=== PATIENT | male | born 1990 ===

== ENCOUNTER 2020-06-18 14:18 | Outpatient (REF) | payer OTHER, SELFPAY | END 2020-06-18 14:19 | disposition home or self-care (01) | LOC: HO.LAB 14:18 | PROVIDERS: Visit Provider Internal Medicine | DX: Z20.822 Contact with and (suspected) exposure to COVID-19 (principal) | CPT/HCPCS: 36415; C9803; U0003 ==

== ENCOUNTER 2021-02-04 14:14 | Emergency (ER) | payer OTHER, SELFPAY ==
[2021-02-04 14:28] VITALS: BP 117/66; PULSE 85; RESP 18; TEMP 36.8; O2SAT 100; BMI 34.4
--- NOTE | 2021-02-04 17:34 | ED.GENADULT ---
HPI - General Adult General Chief complaint: General Medical Stated complaint: difficulty swallowing Time Seen by Provider: 02/04/21 17:34 Source: patient Mode of arrival: ambulatory Limitations: no limitations History of Present Illness HPI narrative: 30 years old male is send to ED from his PCP. Patient reports that Monday he ate sausage and felt like it was stuck in his throat. Patient reports that he has enlarged tonsils since he was a child. The next day he states that he had no trouble swallowing oatmeal for breakfast. Patient reports that that afternoon he ate chicken that was fried in the fryer that was very dry and and it felt like he had hard time swallowing and getting down to his stomach. Patient reports that he drinks some water and felt better. This morning he had some eggs and had some feeling of epigastric discomfort and burning. Pain happened after he ate. He did not had difficulty of swallowing he points that his pain is mainly in mid upper abdomen just below the sternum. Related Data Previous Rx's Medication Instructions Recorded famotidine 20 mg tablet 20 mg PO BEDTIME #20 tab 02/04/21 pantoprazole 40 mg tablet,delayed 40 mg PO DAILY #20 tab 02/04/21 release Allergies Allergy/AdvReac Type Severity Reaction Status Date / Time No Known Allergies Allergy Verified 02/04/21 14:28 Review of Systems Review of Systems: Constitutional : No Weight loss, No Fever, No Chills, No Night Sweats, No Fatigue, No Malaise ENT/Mouth : No Hearing loss, No Ear Pain, No Nasal Congestion, No Sinus Pain, No Hoarseness, No sore throat, No Rhinorrhea, No Swallowing Difficulty Eyes: No Eye Pain, No Swelling, No Redness, No Foreign Body, No Discharge, No Vision Changes Cardiovascular : No Chest Pain, No SOB, No Dyspnea on Exertion, No Orthopnea, No Edema, No Palpitations Respiratory : No Cough, No Sputum, No Wheezing, No Smoke Exposure, No Dyspnea Gastrointestinal : No Nausea, No Vomiting, No Diarrhea, No Constipation, No abdominal Pain, No Hematochezia, No Melena, difficulty swallowing Genitourinary : no irregular bleeding, No Dysuria, No Urinary Frequency, No Hematuria, No Urinary Incontinence, No Urgency, No Flank Pain, No Urinary Flow Changes, No Hesitancy Musculoskeletal : No joint pain, No Myalgias, No Joint Swelling Skin : No Skin Lesions, No rash Neuro : No Weakness, No Numbness, No Paresthesias, No Loss of Consciousness, No Dizziness, No Headache Psych : No Anxiety/Panic, No Depression, No SI/HI/AH/VH, No Social Issues, Heme/Lymph: No Bruising, No Bleeding,No Lymphadenopathy Endocrine : No Polyuria, No Polydipsia, No Temperature Intolerance Yes all other systems are reviewed and are negative PMFSH Past Medical History Medical History (Updated 02/05/21 @ 00:02 by Background Ciara) Essential hypertension Mood disorder CHIDI (obstructive sleep apnea) Seborrheic dermatitis Physical Exam Vital Signs: Vital Signs: Last Vital Signs Temp 98.2 F 02/04/21 14:28 Pulse 85 02/04/21 14:28 Resp 18 02/04/21 14:28 BP 117/66 02/04/21 14:28 Pulse Ox 100 02/04/21 14:28 Body Mass Index 34.4 Const: General: healthy appearing, no acute distress and well developed Nutritional Appearance: well nourished Orientation/consciousness: patient oriented x3 HENMT: Head: Yes normal to inspection, Yes normocephalic and Yes atraumatic Ears: hearing grossly normal bilaterally General nose exam: Normal external nose present Face and sinus: Yes normal facial exam Mouth: Normal oral and palatal mucosa present and other (Enlarged tonsils) Eyes: General: appearance normal, both eyes and all related structures Neck: Neck: Yes normal visual inspection, Yes full ROM and Yes trachea midline Thyroid: Thyroid normal Resp: Auscultation: clear to auscultation bilaterally Cardio: Rate: regular rate Rhythm: regular rhythm GI: Inspection: Yes normal to inspection and No distended Palpation (GI): No hepatosplenomegaly present Auscultation: normal bowel sounds Skin: General skin exam: elasticity normal, turgor normal and dry skin Neuro: General: patient oriented x3 Course Course Course Narrative: 30-year-old male here today after complaining of dysphagia after eating dry chicken. Patient reports that he has no trouble swallowing fluids. Patient was able to eat old male with no difficulties. Reports to have trouble eating scrambled eggs. Patient denies nausea vomiting no SOB. No respiratory distress. Will give him famotidine and observe Reevaluation(s) Reevaluation #1: Patient able to tolerate fluids. No shortness of breath or respiratory distress. Patient denies dyspepsia or dysphagia. I will send him home with famotidine and pantoprazole. He can follow up with his primary care provider and with Gastroenterology for possible barium swallow. He is agreeable to plan of care verbalizes understanding of instructions. He was given the opportunity to ask questions all questions answered. Discharge Plan Discharge Clinical Impression: Postprandial epigastric pain Patient Disposition: Home, Self-Care Instructions: Epigastric Pain (ED) Additional Instructions: You were seen here today for difficulty swallowing, epigastric pain. You were given medication to help you with the burning sensation. He will be sent home with 2 different medications. Take 1 in the morning half an hour before breakfast and the other 1 before going to bed. Make sure you are eating soft and bland food for the next few days. Please follow-up with your primary care provider in 2-3 days. I will also give you a number to Gastroenterology please follow up with them next week. You may return to emergency department if your symptoms will get worse or if you will experience any additional concerning symptoms. Prescriptions: New pantoprazole 40 mg tablet,delayed release (DR/EC) 40 mg PO DAILY Qty: 20 RF: 0 famotidine 20 mg tablet 20 mg PO BEDTIME Qty: 20 RF: 0 Referrals: Deena Carreon MD [Physician] - 2 days (Might need a barium swallow) Sushila Young MD [Primary Care Provider] - 2 days Stand Alone Forms: Work/School Release Interventions: ED Discharge Assessment Last Done: 02/04/21 18:51 Discharge Date/Time: 02/04/21 18:52
[2021-02-04] MEDS: Famotidine 20 MG TABLET PO (18:04)
== END 2021-02-04 18:52 | disposition home or self-care (01) ==
PROVIDERS: Emergency Provider Internal Medicine; PCP Internal Medicine
DX: R10.13 Epigastric pain (principal); R13.10 Dysphagia, unspecified; Z79.899 Other long term (current) drug therapy
CPT/HCPCS: 99283

== ENCOUNTER → 2021-02-16 09:04 | Outpatient (BNVA) | payer OTHER, SELFPAY | PROVIDERS: PCP Internal Medicine; Referring Provider Internal Medicine; Visit Provider Nurse Practitioner Family | DX: R13.10 Dysphagia, unspecified (principal); I10 Essential (primary) hypertension | CPT/HCPCS: 99202 ==

== ENCOUNTER 2021-03-25 08:54 | Day surgery (SDC) | payer OTHER, SELFPAY ==
--- NOTE | 2021-03-24 10:10 | P.CONAN_ITS ---
Documented by User: Lacey Goldberg NP 03/24/21 10:10 HPI - Anesthesia Eval Consult details Narrative: 30yo M for Upper Endoscopy and Colonoscopy [facility] Past Medical History Medical History (Updated 02/05/21 @ 00:02 by Background Ciara) Essential hypertension Mood disorder CHIDI (obstructive sleep apnea) Seborrheic dermatitis Family History Family History Father Diabetes Mother HTN (hypertension) Acute arthritis Surgical History Surgical History Hx of appendectomy Social History Social History Household Members: Significant Other Alcohol intake: current Alcohol intake frequency: holidays/special occasions only Patient Tobacco Use Status: Never used Tobacco Use of substances other than those prescribed or required for medical reasons: Yes Substance Use Type: Marijuana Are you DNR?: No Advance Directives: No Advance Directives Information Provided: Yes Meds Allergies Allergy/AdvReac Type Severity Reaction Status Date / Time No Known Allergies Allergy Verified 02/16/21 09:11 Exam Exam Date and Time: March 24, 2021 1010 Assessment and Plan Assessment Anesthesia Assessment: Chart Reviewed Documented by User: Faby Crook MD 03/25/21 10:26 [facility] Past Medical History Medical History (Updated 02/05/21 @ 00:02 by Background Ciara) Essential hypertension Mood disorder CHIDI (obstructive sleep apnea) Seborrheic dermatitis Functional capacity: independent ambulation Family History Family History Father Diabetes Mother HTN (hypertension) Acute arthritis Family history of problems with anesthesia: No Surgical History Surgical History Hx of appendectomy History of Problems with Anesthesia: No Social History Social History Household Members: Significant Other Alcohol intake: current Alcohol intake frequency: holidays/special occasions only Patient Tobacco Use Status: Never used Tobacco Use of substances other than those prescribed or required for medical reasons: Yes Substance Use Type: Marijuana Are you DNR?: No Advance Directives: No Advance Directives Information Provided: Yes Meds Allergies Allergy/AdvReac Type Severity Reaction Status Date / Time No Known Allergies Allergy Verified 02/16/21 09:11 Exam Airway Mallampati Class: III TM Dist: >3cm Neck ROM: Full Heart: RrR Lungs: CTA Assessment and Plan Final Anesthetic Review Family History of Problems with Anesthesia: No History of Problems with Anesthesia: No
--- NOTE | 2021-03-25 08:58 | MHC.SHP ---
Pre-Procedural Eval Section A Date of Service: 03/25/21 Section B Chief Complaint: burn of esophagus Relevant Family History (Specify if Yes): No Relevant Social History: Other (specify) (thc) Present Medications: see Short Stay Collaborative assessment Medical History: Significant History (Essential hypertension Mood disorder CHIDI (obstructive sleep apnea) Seborrheic dermatitis) History of Previous Operations: Relevant previous surgery/procedure and date(s) (appendectomy) Allergies: Allergies Allergy/AdvReac Type Severity Reaction Status Date / Time No Known Allergies Allergy Verified 02/16/21 09:11 Review of Systems Sugical H&P ROS: Negative: Constitution, Cardiovascular, Respiratory, Neurological, Psychiatric, Hem-Onc, Allergic/Immunologic, Gastrointestinal, Genitourinary, Musculoskeletal, Integumentary, Endocrine and Eyes/Ears/Nose/Throat Exam Surgical H&P Exam: Normal: HEENT, Normal: Heart, Normal: Lungs, Normal: Extremities, Normal: Abdomen, Normal: Skin and Normal: Neurological Plan Diagnosis/Plan: Unchanged I have reviewed the history and physical and performed a pertinent physical examination on my patient. No changes have occurred unless specified.
[2021-03-25 09:19] VITALS: BP 123/73; PULSE 76; RESP 16; TEMP 36.6; O2SAT 99; BMI 35.6
[2021-03-25] MEDS: Lactated Ringers 1,000 ML 100 ML IVCONT (09:28)
--- NOTE | 2021-03-25 10:09 | PM.OP ---
Brief Operative Note Date of Service: 03/25/21 Pre-op diagnosis: dysphagia Post-op diagnosis: same Procedure: see op note Surgeon: Deena Carreon MD Anesthesia: MAC Was an Finishing Range Feeder used for this Procedure?: No Estimated blood loss (mL): 0 Condition: stable Disposition: PACU
--- NOTE | 2021-03-25 10:09 | W.PM.OPN ---
Operative Note Operative Note Date of Service: 03/25/21 Narrative: Procedure Description: EGD FLEXIBLE TRANSORAL UPPER GASTROINTESTINAL ENDOSCOPY UPPER ENDOSCOPY Consent: Indications for the procedure and potential complications of bleeding, perforation, reaction to medications and missed diagnosis were discussed with the patient and informed consent was obtained. Instrument: Olympus GIF H 190 J mid size upper endoscope Monitoring: Vital signs and clinical assessment, continuous EKG monitoring, Pulse oximetry, Carbon Dioxide monitoring and blood pressure monitoring were done throughout the procedure. Procedure: The patient was placed in the left lateral decubitis position and pre-procedure medications were administered and a bite block was placed. The endoscope was inserted into the mouth and advanced under direct vision to the third part of duodenum. A careful inspection was made as the upper endoscope was withdrawn including a retroflexed examination of the proximal stomach; Findings and interventions are described below. Findings: Larynx:normal Esophagus: GE junction at 41 cm, diaphragm hiatus at 41 cm, LA grade A esophagitis noted, bx taken from GEj, distal and proximal eesophagus in separate jars. Balloon dilation done at LES and UES to 20 mm with no tears seen. Stomach: Patchy gastric erythema. Biopsies were obtained. Grade 3 flap valve on retroflexed examination of the cardia. The LES appeared lax. Duodenum: Normal bulb and descending duodenum, Intervention: Biopsies as noted above, balloon dilation Impression/Findings: esophagitis gastritis lax LES PLAN: reflux precautions cont with PPi as it is helping and his sx are much improved bx taken to r/o EoE, might need to increase PPI depending on results.
[2021-03-25 10:18] VITALS: BP 117/60; PULSE 80; RESP 16; TEMP 36.5; O2SAT 98
[2021-03-25 10:33] VITALS: BP 127/68; PULSE 71; RESP 18; TEMP 36.5; O2SAT 99
--- NOTE | 2021-03-25 10:45 | HO.POSTANES ---
Post Anesthesia Evaluation Post Anesthesia Evaluation Vital Signs: Vital Signs Temp Pulse Resp BP Pulse Ox 03/25/21 10:33 97.7 F 71 18 127/68 99 03/25/21 10:18 97.7 F 80 16 117/60 98 03/25/21 09:19 97.8 F 76 16 123/73 99 Anesthesia: Monitored Mental Status: Awake Nausea/Vomiting: None Hydration: Adequate Anesthesia-Related Issues: No Anes. Related Issues
== END 2021-03-25 10:46 | disposition home or self-care (01) ==
PROVIDERS: PCP Internal Medicine; Visit Provider Internal Medicine Gastroenterology
PROC: 0DJ08ZZ Inspection of Upper Intestinal Tract, Via Natural or Artificial Opening Endoscopic (ICD-10-PCS; CPT 43235; principal; 2021-03-25 10:20)
DX: R13.10 Dysphagia, unspecified (principal); K22.4 Dyskinesia of esophagus; K20.80 Other esophagitis without bleeding; K29.50 Unspecified chronic gastritis without bleeding; K44.9 Diaphragmatic hernia without obstruction or gangrene; K21.9 Gastro-esophageal reflux disease without esophagitis; I10 Essential (primary) hypertension; G47.33 Obstructive sleep apnea (adult) (pediatric); F39 Unspecified mood [affective] disorder; Z79.899 Other long term (current) drug therapy
CPT/HCPCS: 43249; 43239; 88305; 88342; C1726

== ENCOUNTER → 2021-04-06 11:31 | Outpatient (BNVA) | payer OTHER, SELFPAY | PROVIDERS: PCP Internal Medicine; Referring Provider Internal Medicine; Visit Provider Nurse Practitioner Family | DX: R10.13 Epigastric pain (principal); K21.9 Gastro-esophageal reflux disease without esophagitis | CPT/HCPCS: 99212 ==

== ENCOUNTER → 2022-01-10 10:02 | Outpatient (BNVA) | payer SELFPAY | PROVIDERS: PCP Internal Medicine; Visit Provider Physician Assistant Medical | DX: Z02.79 Encounter for issue of other medical certificate (principal) ==

== ENCOUNTER 2022-02-15 08:43 | Emergency (ER) | payer OTHER, SELFPAY ==
[2022-02-15 08:57] VITALS: BP 151/100; PULSE 106; RESP 18; TEMP 36.6; O2SAT 100; BMI 35.7
[2022-02-15 10:02] LABS: Appearance Urine Clear; Color Urine Dark Yellow; Glucose Urine UA Negative (Negative); Leukocyte Esterase Urine Negative (Negative); Nitrite Urine Negative (Negative); PH 5.5 (5.0-9.0); Specific Gravity - Urine >= 1.030 (1.005-1.025); Urine Blood Negative (Negative); Urine Ketones 40 mg/dL (Negative); Urine Protein Negative (Neg-Trace)
[2022-02-15 11:27] VITALS: BP 145/72; PULSE 92; RESP 17; TEMP 37.1; O2SAT 99
--- NOTE | 2022-02-15 11:32 | ED.MALEGU ---
HPI - Male Genitourinary General Chief complaint: Urogenital-Male Stated complaint: lower back pain/pain while urinating Time Seen by Provider: 02/15/22 09:09 Source: patient Mode of arrival: ambulatory Limitations: no limitations History of Present Illness Complaint: dysuria and possible STD exposure Onset (ago): week(s) (1) Duration: intermittent Location: penis Severity: mild Quality: burning Relieving factors: none Exacerbating factors: urination Context: new sexual partner Associated symptoms: Reports other (mild low back pain) Related Data Previous Rx's Medication Instructions Recorded famotidine 20 mg tablet 20 mg PO BEDTIME #30 tabs 04/06/21 pantoprazole 40 mg tablet,delayed 40 mg PO DAILY #30 tabs 04/06/21 release doxycycline hyclate 100 mg tablet 100 mg PO BID 7 days #14 tabs 02/15/22 Allergies Allergy/AdvReac Type Severity Reaction Status Date / Time No Known Allergies Allergy Verified 04/06/21 11:58 Review of Systems Review of Systems: Constitutional : No Fever, No Chills ENT/Mouth : No sore throat, No Rhinorrhea Eyes: No Eye Pain, No Swelling, No Redness Cardiovascular : No Chest Pain, No SOB Respiratory : No Cough, No Sputum, No Wheezing Gastrointestinal : No Nausea, No Vomiting, No Diarrhea No abdominal Pain Genitourinary : pos Dysuria, No Urinary Frequency, No Hematuria, Musculoskeletal : No joint pain, No Myalgias, No Joint Swelling Skin : No Skin Lesions, No rash Neuro : No Weakness, No Numbness, No Dizziness, No Headache PMFSH Past Medical History Medical History Essential hypertension Mood disorder CHIDI (obstructive sleep apnea) Seborrheic dermatitis Surgical History (Updated 04/06/21 @ 12:02 by Cathryn Clark CMA) History of endoscopy Hx of appendectomy Family History Family History Father Diabetes Mother HTN (hypertension) Acute arthritis Social History Social History Household Members: Significant Other Alcohol intake: current Alcohol intake frequency: holidays/special occasions only Patient Tobacco Use Status: Never used Tobacco Substance Use Type: Marijuana Physical Exam Vital Signs: Vital Signs: Last Vital Signs Temp 98.7 F 02/15/22 11:27 Pulse 92 02/15/22 11:27 Resp 17 02/15/22 11:27 BP 145/72 H 02/15/22 11:27 Pulse Ox 99 02/15/22 11:27 O2 Del Method 02/15/22 11:27 BMI result Body Mass Index 35.7 Appearance: Alert. Oriented X3. No acute distress. Eyes: Pupils equal, round and reactive to light. ENT: Pharynx normal. Neck: Normal inspection. Neck supple. CVS: Pulses normal. Respiratory: No respiratory distress. Abdomen: Soft and nontender. : normal no mass or rash seen, no discharge Skin: Skin warm and dry. Normal skin color. Extremities: No lower extremity edema. Neuro: Oriented X 3. No motor deficit. No sensory deficit. MDM - Male Genitourinary MDM Narrative Medical decision making narrative: 31 yo female otherwise healthy here with burning pain when he pees after sexual encounter 2 weeks ago - no fevers, no rash seen no mass, abdomen is benign. not toxic appearing, will obtain GC start on ceftriaxone and doxy, discussed safe safe, refer to PP for HIV testing Lab Data Labs: Lab Results 02/15/22 Range/Units 09:50 Urine Color Dark Yellow Urine Appearance Clear Urine pH 5.5 (5.0-9.0) Ur Specific [place] >= 1.030 H (1.005-1.025) Urine Protein Negative (Neg-Trace) mg/dL Urine Glucose (UA) Negative (Negative) mg/dL Urine Ketones 40 (Negative) mg/dL Urine Blood Negative (Negative) Urine Nitrite Negative (Negative) Ur Leukocyte Esterase Negative (Negative) Discharge Plan Discharge Clinical Impression: Dysuria, Exposure to sexually transmitted disease (STD) Patient Disposition: Home, Self-Care Instructions: Sexually Transmitted Diseases (ED), Dysuria (ED) Additional Instructions: usted fue tratado por gonorrea. braxton antibi?chastity es para la clamidia; debe terminar todo el frasco de antibi?ticos. braxton corona necesita ser examinada y tratada. sin sexo justina 7 d?as. por favor vaya a planificaci?n familiar o tapestry para la prueba del VIH. lo llamaremos con resultados positivos de braxton prueba en 2 a 3 d?as [facility] [id number] [facility] [phone] Prescriptions: New doxycycline hyclate 100 mg tablet 100 mg PO BID 7 Days Qty: 14 0RF No Action famotidine 20 mg tablet 20 mg PO BEDTIME Qty: 30 2RF pantoprazole 40 mg tablet,delayed release (DR/EC) 40 mg PO DAILY Qty: 30 2RF Rx Instructions: Take half an hour before breakfast Stand Alone Forms: Work/School Release Print Language: Telugu
[2022-02-15] MEDS: cefTRIAXone sodium 500 MG, Lidocaine HCl 1 % MPF 1 ML IM (11:49)
== END 2022-02-15 11:53 | disposition home or self-care (01) ==
PROVIDERS: Emergency Provider Emergency Medicine
DX: R30.0 Dysuria (principal); Z20.2 Contact with and (suspected) exposure to infections with a predominantly sexual mode of transmission; I10 Essential (primary) hypertension; F12.90 Cannabis use, unspecified, uncomplicated; Z79.899 Other long term (current) drug therapy
CPT/HCPCS: 81003; 87491; 87591; 96372; 99283; 99284; J0696

== ENCOUNTER → 2023-03-23 08:57 | Outpatient (BNVA) | payer OTHER, SELFPAY | PROVIDERS: Visit Provider Physician Assistant Surgical ==

== ENCOUNTER → 2023-03-31 08:06 | Outpatient (BNVA) | payer OTHER, SELFPAY | PROVIDERS: Visit Provider Surgery ==

== ENCOUNTER 2023-04-05 08:19 | Outpatient (AMB) | payer OTHER, SELFPAY ==
--- NOTE | 2023-04-05 12:32 | A.OFFVIS_ITS ---
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 *R/S'D* HPI Details Start time:12.25pm, End time: 1.14pm ?I spent 44 minutes speaking with the patient on the phone plus an additional 5 minutes reviewing and updating records for a total of 49 minutes HPI Comments History of Present Illness Details Previous weight loss efforts: self diets and exercise Wakes up: 7am, Sleeps: 11pm Breakfast: skips Lunch: 12pm (2 eggs and cheese) Dinner: 5.30pm (tuna, chicken) Snacks: one Premier shake at 1pm, 11pm (Oreos) Exercise: Gym daily Fluids: Coffee 5-6/day (black), tea: Green tea: 3 cups per day (plain), soda: none, juice: 1/week, ETOH: 2/week (Whiskey 18oz each time) [facility] Medical History (Updated 04/05/23 @ 12:34 by Perico Brown MD) Morbid obesity Mood disorder Seborrheic dermatitis Essential hypertension CHIDI (obstructive sleep apnea) Surgical History (Updated 04/06/21 @ 12:02 by Cathryn Clark [facility]) History of endoscopy Hx of appendectomy Family History (Updated 03/23/23 @ 09:18 by Alexandria Forbes CMA) Father Diabetes Mother HTN (hypertension) Acute arthritis Sleep apnea Son Autism Daughter No problems noted. Social History Household Members: Significant Other Alcohol intake: current Alcohol intake frequency: holidays/special occasions only Patient Tobacco Use Status: Never used Tobacco Substance Use Type: Marijuana Assessment & Plan Assessment & Plan (1) Morbid obesity: Code(s): E66.01 - Morbid (severe) obesity due to excess calories Plan: 1.? Plan for lap sleeve gastrectomy. If diaphragmatic or ventral hernias are present at time of surgery, these will be repaired laparoscopically as well. Risks and complications were discussed in detail including possible conversion t o an open procedure, anastomotic leak, bleeding requiring transfusion, small bowel obstruction, , DVT and pulmonary embolism, cardiac, or pulmonary complications, as buttermaker continuous churn complications such as anastomotic ulcer, insufficient weight loss and vitamin deficiencies. I emphasized the importance of close follow-up, adherence to instructions and good communication. 2. Nutritional Counseling: A) PLAN WITH LIQUID PREMIER SHAKES: Start with ONE PREMIER PREMADE protein shake at 8am-10am, two protein bars (Zone Perfect protein bars, buy at [employer], ?[employer], [employer], or [employer]) at 11am-1pm and 2m-4pm, dinner at 5pm (10 forks of protein and 10 forks of salad/vegetables), another Zone Perfect protein bar at 7pm-9pm and another HALF protein bar at 10pm-11pm. So you do 1 protein shake, 3.5 protein bars and one meal per day. B) PLAN WITH POWDERED PREMIER SHAKES: Start with 2 Premier powdered protein shakes (ONE scoop EACH in 8oz low fat unsweetened almond milk each) at 8am-10am and 11am-1pm, 1 Zone Perfect protein bar at 2pm-4pm, dinner at 5pm (10 forks of protein and 10 forks of salad/vegetables) another Zone Perfect protein bar at 7pm-9pm and another HALF protein bar at 10pm-11pm. So you do 2 protein shakes, 2.5 protein bars and one meal per day. Meal to include lean meat (beef, fish, pork, turkey, chicken), or luxembourgish yogurt, or egg whites, or beans with a salad with olive oil and fruits (berries, pears, apples, kiwi). Avoid salt, breads, potatoes, rice, pasta, desserts. 3. Each shake would be drunk slowly, like coffee in a period of 2 hours. May add your coffee into your shakes, if flavors match. 4. Cut each bar in 4 pieces and eat each piece in 30min ?to make each bar last 2 hours. 5. I emphasized the importance of measuring accurately the food portion and measure it when serving the food in plate 6. The meal portions include 10 full-size forks of meat and 10 full-size forks of salad. You always eat the meat portion but you can replace up to 5 forks for salad/vegetables with rice, potatoes or pasta, or a fruit ?if you like. The less you do it the better weight loss will be. 7. One full-size fork is what it can be scooped on the fork without falling aside and not what can be bit with the fork. Use regular forks like those you find in a typical restaurant. 8.? Please send me weight measurements as soon as possible and then once a week. Always include your diet and exercise plan. 9. Start treadmill with an incline of 2.0 and speed of 3.0. Increase incline by 1 every 3 min to a max incline of 8.0, stay 3min at 8.0 and then return to 2.0 and repeat same steps until calorie goal is met. Goal is to burn 2000 calories per week on exercise, which means either 300 calories daily, or 400 calories 5 days per week, or 500 calories 4 days per week, or 650 calories 3 days per week. 10. Alternatively purchase a stationary bike, elliptical or treadmill at home that can track calories. Let me know if you do so I can give you an exercise plan. 11. Goal is to lose at least 1.5-2lbs per week 12. Goal to lose 10% of your weight before surgery, which is about 29lbs. Ultimate weight goal: 262lbs before surgery 13. Please follow the diet plan exactly without any change. If you don't like something about the plan or you feel hungry you need to communicate with me so I can help you revise the plan. You should not change the plan yourself. (2) CHIDI (obstructive sleep apnea): Code(s): G47.33 - Obstructive sleep apnea (adult) (pediatric) (3) Essential hypertension: Code(s): I10 - Essential (primary) hypertension Orders: Orders Comprehensive Met. Panel Today E66.01 - Morbid (severe) obesity due to excess calories, G47.33 - Obstructive sleep apnea (adult) (pediatric), I10 - Essential (primary) hypertension Vitamin B1 Today E66.01 - Morbid (severe) obesity due to excess calories, G47.33 - Obstructive sleep apnea (adult) (pediatric), I10 - Essential (primary) hypertension Vitamin A Today E66.01 - Morbid (severe) obesity due to excess calories, G47.33 - Obstructive sleep apnea (adult) (pediatric), I10 - Essential (primary) hypertension PTHI Today E66.01 - Morbid (severe) obesity due to excess calories, G47.33 - Obstructive sleep apnea (adult) (pediatric), I10 - Essential (primary) hypertension TSH reflex Free T4 Today E66.01 - Morbid (severe) obesity due to excess calories, G47.33 - Obstructive sleep apnea (adult) (pediatric), I10 - Essential (primary) hypertension Vitamin D 25-OH Total Today E66.01 - Morbid (severe) obesity due to excess calories, G47.33 - Obstructive sleep apnea (adult) (pediatric), I10 - Essential (primary) hypertension Hemoglobin A1c Today E66.01 - Morbid (severe) obesity due to excess calories, G47.33 - Obstructive sleep apnea (adult) (pediatric), I10 - Essential (primary) hypertension US abdomen comp w elastography Today E66.01 - Morbid (severe) obesity due to excess calories, G47.33 - Obstructive sleep apnea (adult) (pediatric), I10 - Essential (primary) hypertension Insulin Today E66.01 - Morbid (severe) obesity due to excess calories, G47.33 - Obstructive sleep apnea (adult) (pediatric), I10 - Essential (primary) hypertension Lipid Panel Today E66.01 - Morbid (severe) obesity due to excess calories, G47.33 - Obstructive sleep apnea (adult) (pediatric), I10 - Essential (primary) hypertension IRON PROFILE Today E66.01 - Morbid (severe) obesity due to excess calories, G47.33 - Obstructive sleep apnea (adult) (pediatric), I10 - Essential (primary) hypertension Complete Blood Count Auto Diff Today E66.01 - Morbid (severe) obesity due to excess calories, G47.33 - Obstructive sleep apnea (adult) (pediatric), I10 - Essential (primary) hypertension Vitamin B12 and Folate Today E66.01 - Morbid (severe) obesity due to excess calories, G47.33 - Obstructive sleep apnea (adult) (pediatric), I10 - Essential (primary) hypertension Zinc Today E66.01 - Morbid (severe) obesity due to excess calories, G47.33 - Obstructive sleep apnea (adult) (pediatric), I10 - Essential (primary) hypertension C Reactive Protein Today E66.01 - Morbid (severe) obesity due to excess calories, G47.33 - Obstructive sleep apnea (adult) (pediatric), I10 - Essential (primary) hypertension Ferritin Today E66.01 - Morbid (severe) obesity due to excess calories, G47.33 - Obstructive sleep apnea (adult) (pediatric), I10 - Essential (primary) hypertension H Pylori Breath Test Today E66.01 - Morbid (severe) obesity due to excess calories, G47.33 - Obstructive sleep apnea (adult) (pediatric), I10 - Essential (primary) hypertension XR chest 2V Today E66.01 - Morbid (severe) obesity due to excess calories, G47.33 - Obstructive sleep apnea (adult) (pediatric), I10 - Essential (primary) hypertension ECG 12 lead EKG Today E66.01 - Morbid (severe) obesity due to excess calories, G47.33 - Obstructive sleep apnea (adult) (pediatric), I10 - Essential (primary) hypertension FL upper GI w air Today E66.01 - Morbid (severe) obesity due to excess calories, G47.33 - Obstructive sleep apnea (adult) (pediatric), I10 - Essential (primary) hypertension Referrals Behavioral Health Referral E66.01 - Morbid (severe) obesity due to excess calories, G47.33 - Obstructive sleep apnea (adult) (pediatric), I10 - Essential (primary) hypertension Nutrition/Dietitian Referral E66.01 - Morbid (severe) obesity due to excess calories, G47.33 - Obstructive sleep apnea (adult) (pediatric), I10 - Essential (primary) hypertension Telehealth Telehealth Location of provider rendering services: practice address Location of patient: address on file Patient Identification confirmed using: Name, : Yes Telehealth method: voice only Patient verbally consented to treatment: Yes Patient verbally consented to billing insurance company: Yes Patient informed of any privacy concerns related to visit: Yes Minutes spent on Phone/Video with Pt.: 49 Coding Level of Care Code Tele [facility] Pt Level 4 (00304) Diagnoses Morbid obesity E66.01 CHIDI (obstructive sleep apnea) G47.33 Essential hypertension I10 Time Spent (min) 49
[2023-04-05 12:41] VITALS: BMI 44.2
== END 2023-04-05 13:15 | disposition home or self-care (01) ==
LOC: HO.HBS 08:19
PROVIDERS: Visit Provider Surgery
DX: E66.01 Morbid (severe) obesity due to excess calories (principal); G47.33 Obstructive sleep apnea (adult) (pediatric); I10 Essential (primary) hypertension
CPT/HCPCS: 99204

== ENCOUNTER → 2023-04-05 08:19 | Outpatient (BNVA) | payer OTHER, SELFPAY | PROVIDERS: Visit Provider Surgery ==

== ENCOUNTER 2023-04-06 09:04 | Outpatient (REF) | payer OTHER, SELFPAY ==
--- NOTE | ~2023-04-06 | XR_ITS ---
EXAMINATION: XR CHEST CLINICAL INFORMATION: Morbid (severe) obesity due to excess calories COMPARISON: Chest 05/12/2019 TECHNIQUE: 2 views of the chest were obtained. FINDINGS: No significant abnormality is noted involving the heart, lungs, mediastinum, bony thorax or soft tissues. XR/XR chest 2V IMPRESSION: Unremarkable examination.
--- NOTE | 2023-04-06 09:11 | ECG_ITS ---
Test Reason : morbid obesity Blood Pressure : / mmHG Vent. Rate : 081 BPM Atrial Rate : 081 BPM P-R Int : 166 ms QRS Dur : 100 ms QT Int : 372 ms P-R-T Axes : 059 004 027 degrees QTc Int : 432 ms Normal sinus rhythm Normal ECG When compared with ECG of 12-MAY-2019 15:00, No significant change was found Referred By: Perico Brown Electronically Signed By:SHAW OBRIEN MD
[2023-04-06 09:30] LABS: MANUAL DIFF FLAG NO
[2023-04-06 09:42] LABS: Basophils Percent Auto 0.6 % (0-2); Eosinophils Absolute Auto 0.2 X10*3/uL (0.0-0.4); Eosinophils Percent Auto 3.8 % (0-4); Hemoglobin 15.1 g/dl (14.0-18.0); Imm Gran Abs Auto 0.05 X10*3/uL (0.00-0.03); Lymphocytes Absolute Auto 2.4 X10*3/uL (1.2-4.9); Lymphocytes Percent Auto 49.2 % (20-40); Mean Corpuscular HGB Conc 33.6 g/dl (31.0-36.0); Mean Corpuscular Hemoglobin 27.6 pg (27.0-33.0); Mean Corpuscular Volume 82.1 fL (80.0-98.0); Mean Platelet Volume 10.1 fL (9.4-12.4); Monocytes Absolute Auto 0.6 X10*3/uL (0.1-1.2); Monocytes Percent Auto 11.7 % (2-11); Neutrophils Absolute Auto 1.6 x10*3/uL (2.0-8.3); Neutrophils Percent Auto 33.7 % (45-73); Platelet Count 196 X10*3/uL (160-400); Red Blood Count 5.48 X10*6/uL (4.60-5.80); Red Cell Distribution Width 13.3 % (11.0-16.0); White Blood Count 4.8 X10*3/uL (4.8-10.8)
[2023-04-06 09:56] LABS: Estimated Average Glucose 91 mg/dL; Hemoglobin A1c % 4.8 % (<6.0)
[2023-04-06 10:17] LABS: Alanine Aminotransferase 44 U/L (0-40); Albumin Level 4.4 g/dL (3.5-5.0); Alkaline Phosphatase 98 U/L (39-117); Anion Gap 12 (12-20); Aspartate Amino Transferase 31 U/L (5-37); Bilirubin Total 0.6 mg/dL (0.0-1.0); Blood Urea Nitrogen 12 mg/dL (9-16); C Reactive Protein 1.39 mg/dL (< or = 0.50); Calcium 9.3 mg/dL (8.4-10.2); Carbon Dioxide 21 mmol/L (22-29); Chloride 111 mmol/L (96-108); Cholesterol 188 mg/dL (<200); Estimated Glomerular Filt Rate > 60; Glucose Random 95 mg/dL (60-115); HDL Cholesterol 44 mg/dL (>40); Iron 107 mcg/dL (45-160); LDL Cholesterol Calculated 131 mg/dL (<100); Percent Iron Saturation 36 % (15-50); Potassium 3.8 mmol/L (3.3-5.1); Sodium 140 mmol/L (135-145); Total Iron Binding Capacity 295 mcg/dL (228-428); Total Protein 7.9 g/dL (6.5-8.0); Triglycerides 67 mg/dL (<150); Unsaturated Iron Binding 188 ug/dL
[2023-04-06 10:33] LABS: Ferritin 163 ng/mL (20-250); Insulin 5 uU/mL (2-29); TSH reflex Free T4 0.84 uIU/mL (0.32-4.0)
[2023-04-06 10:41] LABS: Folate 13.4 ng/mL (> or = 4.0); Vitamin B12 790 pg/mL (200-900)
[2023-04-07 17:49] LABS: Calcium (PTHI) 9.2 mg/dL (8.6-10.3); PTHI 25 pg/mL (16-77)
[2023-04-09 22:24] LABS: Zinc 93 mcg/dL (60-130)
[2023-04-11 08:44] LABS: Vitamin A 60 mcg/dL (38-98)
[2023-04-11 14:53] LABS: Vitamin B1 10 nmol/L (8-30)
[2023-04-12 15:23] LABS: H Pylori Breath Test Negative (Negative)
== END 2023-04-06 09:05 | disposition home or self-care (01) ==
LOC: HO.XRAY 09:04
PROVIDERS: Visit Provider Surgery
DX: Z11.2 Encounter for screening for other bacterial diseases (principal); E66.01 Morbid (severe) obesity due to excess calories; I10 Essential (primary) hypertension; G47.33 Obstructive sleep apnea (adult) (pediatric)
CPT/HCPCS: 36415; 71046; 80053; 80061; 82306; 82607; 82728; 82746; 83013; 83036; 83525; 83540; 83970; 84425; 84443; 84590; 84630; 85025; 86140; 93005; 99211

== ENCOUNTER 2023-04-21 08:08 | Outpatient (AMB) | payer OTHER, SELFPAY ==
[2023-04-21 09:45] VITALS: BMI 45.8
--- NOTE | 2023-04-21 09:45 | A.OFFVIS_ITS ---
Intake VS Expanded 04/21/23 09:45 Height 5 ft 8 in Weight 301 lb 8 oz BMI 45.8 Body Fat % 29.9 Body Fat Mass 90.2 Fat Free Mass 211.6 Visceral Fat Rating 27 Body Water % 50.6 Body Water Mass 152.7 Basal Metabolic Rate/Score 2,437 Intake Visit Reasons: TV Follow Up SWL - 1ST Allergies No Known Allergies Allergy (Verified 04/05/23 12:32) HPI TV Follow Up SWL - 1ST HPI Details Start time: 9.20am, End time: 9.50am ?I spent 25 minutes speaking with the patient on the phone plus an additional 5 minutes reviewing and updating records for a total of 30 minutes HPI Comments History of Present Illness Details Was able to set up the body composition scale and purchase all protein supplements and he is ready to begin Blood work, chest xray and EKG were normal [facility] Medical History (Updated 04/05/23 @ 12:34 by Perico Brown MD) Morbid obesity Mood disorder Seborrheic dermatitis Essential hypertension CHIDI (obstructive sleep apnea) Surgical History (Updated 04/06/21 @ 12:02 by Cathryn Clark [facility]) History of endoscopy Hx of appendectomy Family History (Updated 03/23/23 @ 09:18 by Alexandria Forbes [facility]) Father Diabetes Mother HTN (hypertension) Acute arthritis Sleep apnea Son Autism Daughter No problems noted. Social History Household Members: Significant Other Alcohol intake: current Alcohol intake frequency: holidays/special occasions only Patient Tobacco Use Status: Never used Tobacco Substance Use Type: Marijuana Assessment & Plan Assessment & Plan (1) Morbid obesity: Code(s): E66.01 - Morbid (severe) obesity due to excess calories Plan: 1.? Plan for lap sleeve gastrectomy. If diaphragmatic or ventral hernias are present at time of surgery, these will be repaired laparoscopically as well. Risks and complications were discussed in detail including possible conversion to an open procedure, anastomotic leak, bleeding requiring transfusion, small bowel obstruction, , DVT and pulmonary embolism, cardiac, or pulmonary complications, as group home complications such as anastomotic ulcer, insufficient weight loss and vitamin deficiencies. I emphasized the importance of close follow-up, adherence to instructions and good communication. 2. Nutritional Counseling: A) PLAN WITH LIQUID PREMIER SHAKES: Start with ONE PREMIER PREMADE protein shake at 8am-10am, two protein bars (Zone Perfect protein bars, buy at [employer], ?[employer], [employer], or [employer]) at 11am-1pm and 2m-4pm, dinner at 5pm (10 forks of protein and 10 forks of salad/vegetables), another Zone Perfect protein bar at 7pm-9pm and another HALF protein bar at 10pm-11pm. So you do 1 protein shake, 3.5 protein bars and one meal per day. B) PLAN WITH POWDERED PREMIER SHAKES: Start with 2 Premier powdered protein shakes (ONE scoop EACH in 8oz low fat unsweetened almond milk each) at 8am-10am and 11am-1pm, 1 Zone Perfect protein bar at 2pm-4pm, dinner at 5pm (10 forks of protein and 10 forks of salad/vegetables) another Zone Perfect protein bar at 7pm-9pm and another HALF protein bar at 10pm-11pm. So you do 2 protein shakes, 2.5 protein bars and one meal per day. Meal to include lean meat (beef, fish, pork, turkey, chicken), or nigerien yogurt, or egg whites, or beans with a salad with olive oil and fruits (berries, pears, apples, kiwi). Avoid salt, breads, potatoes, rice, pasta, desserts. 3. Each shake would be drunk slowly, like coffee in a period of 2 hours. May add your coffee into your shakes, if flavors match. 4. Cut each bar in 4 pieces and eat each piece in 30min ?to make each bar last 2 hours. 5. I emphasized the importance of measuring accurately the food portion and measure it when serving the food in plate 6. The meal portions include 10 full-size forks of meat and 10 full-size forks of salad. You always eat the meat portion but you can replace up to 5 forks for salad/vegetables with rice, potatoes or pasta, or a fruit ?if you like. The less you do it the better weight loss will be. 7. One full-size fork is what it can be scooped on the fork without falling aside and not what can be bit with the fork. Use regular forks like those you find in a typical restaurant. 8.? Please send me weight measurements as soon as possible and then once a wee k. Always include your diet and exercise plan. 9. Start treadmill with an incline of 2.0 and speed of 3.0. Increase incline by 1 every 3 min to a max incline of 8.0, stay 3min at 8.0 and then return to 2.0 and repeat same steps until calorie goal is met. Goal is to burn 2000 calories per week on exercise, which means either 300 calories daily, or 400 calories 5 days per week, or 500 calories 4 days per week, or 650 calories 3 days per week. 10. Alternatively purchase a stationary bike, elliptical or treadmill at home that can track calories. Let me know if you do so I can give you an exercise plan. 11. Goal is to lose at least 1.5-2lbs per week 12. Goal to lose 10% of your weight before surgery, which is about 29lbs. Ultimate weight goal: 262lbs before surgery 13. Please follow the diet plan exactly without any change. If you don't like something about the plan or you feel hungry you need to communicate with me so I can help you revise the plan. You should not change the plan yourself. (2) Essential hypertension: Code(s): I10 - Essential (primary) hypertension (3) CHIDI (obstructive sleep apnea): Code(s): G47.33 - Obstructive sleep apnea (adult) (pediatric) Telehealth Telehealth Location of provider rendering services: practice address Location of patient: address on file Patient Identification confirmed using: Name, : Yes Telehealth method: voice only Patient verbally consented to treatment: Yes Patient verbally consented to billing insurance company: Yes Patient informed of any privacy concerns related to visit: Yes Minutes spent on Phone/Video with Pt.: 30 Coding Level of Care Code Tele Est Pt Level 4 (10419) Diagnoses Morbid obesity E66.01 Essential hypertension I10 CHIDI (obstructive sleep apnea) G47.33 Time Spent (min) 30
== END 2023-04-21 09:52 | disposition home or self-care (01) ==
LOC: HO.HBS 08:08
PROVIDERS: Visit Provider Surgery
DX: E66.01 Morbid (severe) obesity due to excess calories (principal); I10 Essential (primary) hypertension; G47.33 Obstructive sleep apnea (adult) (pediatric)
CPT/HCPCS: 99214

== ENCOUNTER → 2023-04-21 08:08 | Outpatient (BNVA) | payer OTHER, SELFPAY | PROVIDERS: Visit Provider Surgery ==

== ENCOUNTER 2023-05-05 08:16 | Outpatient (AMB) | payer OTHER, SELFPAY ==
--- NOTE | 2023-05-05 09:31 | MHC.OFFVISWM ---
Intake VS Expanded 05/05/23 09:36 Height 5 ft 8 in Weight 295 lb 6 oz BMI 44.9 Body Fat % 29.1 Body Fat Mass 86 Fat Free Mass 209.6 Visceral Fat Rating 27 Body Water % 51.2 Body Water Mass 151.3 Intake Visit Reasons: TV Follow Up SWL Allergies No Known Allergies Allergy (Verified 04/05/23 12:32) HPI TV Follow Up SWL HPI Details Start time: 9.19am, End time: 9.39am ?I spent 15 minutes speaking with the patient on the phone plus an additional 5 minutes reviewing and updating records for a total of 20 minutes HPI Comments History of Present Illness Details Is doing one Premier shake premade, 3.5 Zone Perfect protein bars and one meal (10 forks each) Exercise: treadmill for 400 calories, 5 days per week PFSH Medical History (Updated 04/05/23 @ 12:34 by Perico Brown MD) Morbid obesity Mood disorder Seborrheic dermatitis Essential hypertension CHIDI (obstructive sleep apnea) Surgical History (Updated 04/06/21 @ 12:02 by Cathryn Clark [facility]) History of endoscopy Hx of appendectomy Family History (Updated 03/23/23 @ 09:18 by Alexandria Forbes [facility]) Father Diabetes Mother HTN (hypertension) Acute arthritis Sleep apnea Son Autism Daughter No problems noted. Social History Household Members: Significant Other Alcohol intake: current Alcohol intake frequency: holidays/special occasions only Patient Tobacco Use Status: Never used Tobacco Substance Use Type: Marijuana Assessment & Plan Assessment & Plan (1) Morbid obesity: Code(s): E66.01 - Morbid (severe) obesity due to excess calories Plan: 1. Continue same nutritional plan of ONE PREMIER PREMADE protein shake at 8am-10am, two Zone Perfect protein bars at 11am-1pm and 2m-4pm, dinner at 5pm (10 forks of protein and 10 forks of salad/vegetables), another Zone Perfect protein bar at 7pm-9pm and another HALF protein bar at 10pm-11pm. So you do 1 protein shake, 3.5 protein bars and one meal per day. 2. Once you ran out from the premade Premier protein shakes, please start with 2 Premier powdered protein shakes (ONE scoop EACH in 8oz low fat unsweetened almond milk each) at 8am-10am and 11am-1pm, 1 Zone Perfect protein bar at 2pm-4pm, dinner at 5pm (10 forks of protein and 10 forks of salad/vegetables) another Zone Perfect protein bar at 7pm-9pm and another HALF protein bar at 10pm-11pm. So you do 2 protein shakes, 2.5 protein bars and one meal per day. 3. Continue treadmill with an incline of 2.0 and speed of 3.0. Increase incline by 1 every 3 min to a max incline of 8.0, stay 3min at 8.0 and then return to 2.0 and repeat same steps for 400 calories, 5 days per week. Goal is to burn 2000 calories per week on exercise. 4. Send me weight measurements on Monday and then weekly on Tuesdays Telehealth Telehealth Location of provider rendering services: practice address Location of patient: address on file Patient Identification confirmed using: Name, : Yes Telehealth method: voice only Patient verbally consented to treatment: Yes Patient verbally consented to billing insurance company: Yes Patient informed of any privacy concerns related to visit: Yes Minutes spent on Phone/Video with Pt.: 20 Coding Level of Care Code Tele Est Pt Level 3 (25622) Diagnoses Morbid obesity E66.01 Time Spent (min) 20
[2023-05-05 09:36] VITALS: BMI 44.9
== END 2023-05-05 09:41 | disposition home or self-care (01) ==
LOC: HO.HBS 08:16
PROVIDERS: Visit Provider Surgery
DX: E66.01 Morbid (severe) obesity due to excess calories (principal)
CPT/HCPCS: 99213

== ENCOUNTER → 2023-05-05 08:16 | Outpatient (BNVA) | payer OTHER, SELFPAY | PROVIDERS: Visit Provider Surgery ==

== ENCOUNTER 2023-05-08 09:29 | Outpatient (AMB) | payer OTHER, SELFPAY ==
--- NOTE | 2023-05-08 09:05 | MHC.AMNUTRGE ---
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 he plans to resume work soon. 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 Exercise: going to the gym , doing elliptical machine 45 minutes 5x per week. Enjoys it. also has a bike at home SW online classes: completed in Slovenian but scored 0% on most of the exams . Pt unable to verbalize any details regarding post op nutrition. Also states no questions Dietary counseling reduction Who buys your food self Who prepares/cooks your food self Diagnosis Nutrition problem #1 food nutri know defi As related to (etiology) #1 unwilling to learn/apply As evidenced by (sign/symptom) #1 knowledge deficit of diet and verbalize inaccurate info Monitoring/Goals Nutrition problem monitoring total energy intake, level of knowledge/skill, total PRO intake, total CHO intake and weight Outcome progress not met Learning/Education Readiness to learn poor Stages of change action Educational materials provided Yes Most Recent Diabetes Results: Cholesterol 188 mg/dL (<200) 04/06/23 HDL Cholesterol 44 mg/dL (>40) 04/06/23 Triglycerides 67 mg/dL (<150) 04/06/23 Creatinine 0.75 mg/dL (0.5-1.4) 04/06/23 Blood Urea Nitrogen 12 mg/dL (9-16) 04/06/23 Sodium 140 mmol/L (135-145) 04/06/23 Potassium 3.8 mmol/L (3.3-5.1) 04/06/23 Chloride 111 mmol/L (96-108) H 04/06/23 Carbon Dioxide 21 mmol/L (22-29) L 04/06/23 Calcium 9.3 mg/dL (8.4-10.2) 04/06/23 AST 31 U/L (5-37) 04/06/23 ALT 44 U/L (0-40) H 04/06/23 Total Protein 7.9 g/dL (6.5-8.0) 04/06/23 Albumin 4.4 g/dL (3.5-5.0) 04/06/23 [facility] Medical History (Updated 04/05/23 @ 12:34 by Perico Brown MD) Morbid obesity Mood disorder Seborrheic dermatitis Essential hypertension CHIDI (obstructive sleep apnea) Surgical History (Updated 04/06/21 @ 12:02 by Cathryn Clark [facility]) History of endoscopy Hx of appendectomy Family History (Updated 03/23/23 @ 09:18 by Alexandria Forbes [facility]) Father Diabetes Mother HTN (hypertension) Acute arthritis Sleep apnea Son Autism Daughter No problems noted. Social History Household Members: Significant Other Alcohol intake: current Alcohol intake frequency: holidays/special occasions only Patient Tobacco Use Status: Never used Tobacco Substance Use Type: Marijuana Assessment & Plan Assessment & Plan (1) Morbid obesity: Code(s): E66.01 - Morbid (severe) obesity due to excess calories Plan repeat classes in filipino, follow up again Patient Instructions: unsure of pts readiness for surgery. He was unable to verbalize any information regarding post op diet and was minimally engaged. Requested he repeat the classes in filipino, will provide all educational handouts in filipino. Discussed with BH. Telehealth Telehealth Location of provider rendering services: practice address Location of patient: other (car, not driving ) Patient Identification confirmed using: Name, : Yes Telehealth method: video Patient verbally consented to treatment: Yes Patient verbally consented to billing insurance company: Yes Patient informed of any privacy concerns related to visit: Yes Minutes spent on Phone/Video with Pt.: 25 Coding Level of Care Code Nutr Indiv Intake (21808) Diagnoses Morbid obesity E66.01 Time Spent (min) 25
== END 2023-05-08 09:30 | disposition home or self-care (01) ==
LOC: HO.HBS 09:29
PROVIDERS: Visit Provider Dietitian, Registered
DX: E66.01 Morbid (severe) obesity due to excess calories (principal)

== ENCOUNTER → 2023-05-08 09:29 | Outpatient (BNVA) | payer OTHER, SELFPAY | PROVIDERS: Visit Provider Dietitian, Registered | DX: E66.01 Morbid (severe) obesity due to excess calories (principal); Z71.3 Dietary counseling and surveillance | CPT/HCPCS: 97802 ==

== ENCOUNTER 2023-05-09 09:26 | Outpatient (REF) | payer OTHER, SELFPAY ==
--- NOTE | ~2023-05-09 | US_ITS ---
EXAMINATION: US COMPLETE ABDOMEN WITH LIVER ELASTOGRAPHY CLINICAL INFORMATION: Obesity. COMPARISON: None available. TECHNIQUE: Real-time imaging of the abdominal viscera. Noninvasive ultrasound liver fibrosis assessment is performed using Tisha ElastPQ point quantification shear wave elastography (2D-SWE) with a C5-2 MHz transducer. Multiple elastography samples are obtained. FINDINGS: PANCREAS: Normal. The visualized pancreatic head and body are normal in appearance. The remainder of the pancreas is obscured from visualization by the overlying bowel gas. ABDOMINAL AORTA: The proximal, middle, and distal aortic segments are normal in caliber. INFERIOR VENA CAVA: Visualized portions are normal. LIVER: Normal. The liver demonstrates normal size, contour and echogenicity. No focal lesion or intrahepatic biliary duct dilatation. The right lobe measures 15.3 cm in length. The left lobe measures 8.3 cm in length. Portal flow is towards the liver (hepatopetal). Shear wave liver elastography median stiffness is not obtained due to technical factors (reference: normal median stiffness is 1.3 m/s or less). IQR/median stiffness to assess sampling precision is not obtained due to technical factors (reference: good quality data set is IQR/median stiffness of 0.15 or less). GALLBLADDER: Normal. The gallbladder is physiologically distended without evidence of stones, sludge, polyps, wall thickening or pericholecystic fluid. COMMON BILE DUCT: Normal in caliber measuring 0.3 cm in diameter. RIGHT KIDNEY: Normal. No hydronephrosis. No renal calculi or focal parenchymal lesions. The kidney measures 11.3 cm in maximum dimension. LEFT KIDNEY: Normal. No hydronephrosis. No renal calculi or focal parenchymal lesions. The kidney measures 12.4 cm in maximum dimension. SPLEEN: Normal. The spleen measures 12.9 cm in maximum dimension. FREE FLUID: None. US/US abdomen comp w elastography IMPRESSION: 1. The spleen is top normal in size. 2. Liver elastography: Measurements are unable to be obtained due to technical factors, including body habitus. REFERENCE: Society of Radiologists in Ultrasound Liver Stiffness Thresholds (2019): LIVER STIFFNESS THRESHOLDS: *Liver Stiffness equal or less than 1.3 m/s: High probability of being normal. *Liver Stiffness less than 1.7 m/s: In the absence of other known clinical signs, rules out compensated advanced chronic liver disease. *Liver Stiffness 1.7-2.1 m/s: Suggestive of compensated advanced chronic liver disease but need further test for confirmation. *Liver Stiffness over 2.1 m/s: Rules in compensated advanced chronic liver disease. *Liver Stiffness over 2.4 m/s: Suggestive of clinically significant portal hypertension. QUALITY OF DATA SET: *IQR/Median value equal or less than 0.15 implies a quality data set. *IQR/Median value over 0.15 implies a poor quality data set. SIGNIFICANT CHANGE FROM PRIOR EXAM: Significant change if liver stiffness measurement is 10% or greater from prior exam. OTHER CONSIDERATIONS: The stage of liver fibrosis may be overestimated in the setting of acute hepatitis, liver inflammation, elevated liver function tests, hepatic vascular congestion, obstructive cholestasis, non-fasting state, and infiltrative diseases such as amyloidosis and lymphoma. In some patients with NAFLD, the liver stiffness thresholds for compensated advanced chronic liver disease may be lower. In causes other than viral hepatitis and NAFLD, liver stiffness thresholds are not well established.
== END 2023-05-09 09:27 | disposition home or self-care (01) ==
LOC: HO.US 09:26
PROVIDERS: Visit Provider Surgery
DX: E66.01 Morbid (severe) obesity due to excess calories (principal); I10 Essential (primary) hypertension
CPT/HCPCS: 76705; 76981

== ENCOUNTER 2023-05-10 09:15 | Outpatient (AMB) | payer OTHER, SELFPAY ==
--- NOTE | 2023-05-10 09:15 | MHC.WMTHER ---
Intake Intake Visit Reasons: VIDEO Intake Allergies No Known Allergies Allergy (Verified 04/05/23 12:32) [facility] Medical History (Updated 04/05/23 @ 12:34 by Perico Brown MD) Morbid obesity Mood disorder Seborrheic dermatitis Essential hypertension CHIDI (obstructive sleep apnea) Surgical History (Updated 04/06/21 @ 12:02 by Cathryn Clark [facility]) History of endoscopy Hx of appendectomy Family History (Updated 03/23/23 @ 09:18 by Alexandria Forbes [facility]) Father Diabetes Mother HTN (hypertension) Acute arthritis Sleep apnea Son Autism Daughter No problems noted. Social History Household Members: Significant Other Alcohol intake: current Alcohol intake frequency: holidays/special occasions only Patient Tobacco Use Status: Never used Tobacco Substance Use Type: Marijuana Behavioral Health Assessment Weight Management Therapy Therapy Notes Details PT is a 32 years old, male who presents for assessment as part of [facility] program. Pt states he has been concerned about his weight for several years, he was overweight since a child and after age 20 he has been more aware of weight issues, attempting to lose weight multiple times. Now, he is looking for a long-term solution and for a program that can offer education and support in the long-term. PT reported he has a Hx of ADHD but currently stable, has been in counseling before multiple times and 3 years ago he has panic-like Sx and also anxiety with some motivation challenges, but is not aware of any official diagnosis. Over the summer he received support from PCP's MH team and saw a clinician twice and a prescriber, however PT never used the prescribed meds. So, far he has been doing well on his own and is in search for a therapist to work on motivation and with personal goals. Pt denies any inpatient and/or crisis assessment for MH, also denies any safety concern abound SI/Sa, self harming and/or other-harm. States he's not actively using any substance. Mental status exam was within normal limits and so far functioning is not impaired thus, Patient is cleared from standpoint. Presenting Concerns Referral Source P Provider. Pt knew about us as his sister had bariatric surgery [facility] [place] [facility]. Reason for referral Completion of behavioral health assessment as part of process for weight-loss surgery. Precipitating Event Obesity. Living Situation Current Living Situation Rent At risk of losing current housing? No Satisfied with current living situation? Yes Comments Pt lives alone, but he spends a lot of time at his partners place. Food/Weight/Diet Expectations of change Initial goal to lose 10% of his weight before surgery, which is about 29lbs. Ultimate weight goal: 262lbs before surgery. PT states he was not aware of this initial goal, History/Relationship with food PT reports his emotions affect his eating, when upset or happy she would compensate with food. His go-to comfort food was fast food. Used also to drink a lot of charisse pear juice. History/Relationship with weight PT reports he has always been overweight. In childhood was chunky but after age 20 he has been in a rollercoaster, as he has been in the losing and weight [employer] path since age 20. Was 214Lbs 3 years ago, highest weight is current weight around 300Lbs . In the past 10 years he has been more active attending regularly to the gym History/Relationship with dieting Self-diets, fasting, diet and exercise. 3 years ago he was very consistent with exercise and ketto diet, did this for about 1 year. Started while single, then he began a new intimate relationship and stopped. Binge Eating Do you frequently eat large amounts of food in short periods of time, not feeling physically hungry? Yes Do you feel out of control when you eat a large amount of food in a short period of time? Yes Do you eat large amounts of food rapidly and typically alone? Yes Night Eating Do you wake up at least once during the night to eat? Yes If you wake up in the night, do you find that it is necessary to eat something in order to fall back asleep? Yes Do you have little or no appetite in the morning and feel very hungry in the evening, often overeating between dinner and when you go to bed? Yes Social History Family history and relationship PT is in a relationship 3 years ago. He has 2 children, they're 9 y/o daughter and a 6 y/o son. Mother lives near by, he has 1 youngest brother and oldest 1 sister. They have a good relationship. Dad 15 years ago, they weren't close. 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 Developmental history and status Pt reports he was a slow learner and has ADHD while in school. He had a formal diagnosis of ADHD from [place]. Social support Partner, sister who had bariatric surgery. Community support None. Buddhist/Spirituality Yazidi. Cultural/Ethnic information , [place] Islander. Turkmen speaking. Moved to [place] 13 years ago. Legal Involvement and History Current or historical involvement with the legal system? None reported. Education Highest grade completed 12th grade, got HS diploma. 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 Preferred learning style Visual Currently enrolled in educational program? No Interested in further educational program? No Educational Interests/Skills Driving. 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 ) Wants help to find employment? No Meaningful activities Video games, exercise in the mornings, listen music. Financial Situation Describe current financial situation Comfortable and Occasional struggle Financial assistance? None Service Service? No Mental Health and Addiction Treatment Current/Past substance abuse? Yes Comments Coffee: 1 cup in the morning. He is working on cutting caffeine, before started the program was drinking 3-4 cups at day. Hx of cigarette use. Last use 4 months ago. Did it on his own, and appetite increased while quitting. Cannabis: last use 7 months ago. Used to smoke 3-4 times at day. Alcohol: Social use. Last time 2 weeks ago. Around 16oz of alcohol when drinks. Current/Past addictive behavior concerns? No Psychiatric history He has been in therapy multiple times. Last time he saw a therapist was about a month ago as he was trying a new person but he didn't like it. Reasons to seek counseling is motivation, support with personal goals. Not aware of any official diagnosis but 3 years ago he had panic-like Sx. Never in Crisis or inpatient or . Denies ever deal with SI/SA and/or self/other-harm. . PT was seeing 2 providers trough his PCP office at [facility], saw a prescriber couple times and got prescribed Citalopram 10mg and hydroxyzine 25mg, but he never used these meds, and saw a therapist Burton Beaulieu for counseling, saw this clinician 2 times. Medical and Physical Health Summary Additional Medical History not covered in history None reported Sexual History concerns None reported Physical exam in the last year? 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 ) Pain Screening Current pain? No Pain in the last few months? No Medications Is the patient compliant with medications? Not applicable Does the patient have Smith Guardian in place? Not applicable Does the patient use complimentary health approaches? No Trauma/Abuse History History of trauma? No Questionnaires PHQ-9 Over the last 2 weeks, how often have you been bothered by any of the following problems? 1. Little interest or pleasure in doing things: not at all 2. Feeling down, depressed, or hopeless: not at all 3. Trouble falling or staying asleep, or sleeping too much: not at all 4. Feeling tired or having little energy: not at all 5. Poor appetite or overeating: not at all 6. Feeling bad about yourself - or that you are a failure or have let yourself or your family down: not at all 7. Trouble concentrating on things, such as reading the newspaper or watching television: not at all 8. Moving or speaking so slowly that other people could have noticed. Or the opposite - being so fidgety or restless that you have been moving around a lot more than usual: not at all 9. Thoughts that you would be better off or of hurting yourself in some way: not at all Total score: 0 Depression Screening Interpretation: Negative (Pt scored 10 on PHQ-9 administered when started program, today scored 0, indicating no Sx of depression.) Depression Screening Done: Yes 24870 - PHQ-9 Billing: Yes Source: Developed by Drs. Chong Beach, Lexi Bautista, José Luis Mayer and colleagues, with an educational gracy from [employer]. Binge Eating Scale Group 1 A. I don't feel self-conscious about my wt. or body size when I'm with others. B. I feel concerned about how I look to others, but it normally does not make me fell disappointed with myself C. I do get self-conscious about my appearance and wt. which makes me feel disappointed in myself. D. I feel very self-conscious about my wt. and frequently I feel intense shame and disgust for myself. I try to avoid social contacts because of my self-consciousness. Response Group 1: B Group 2 A. I don't have any difficulty eating slowly in the proper manner. B. Although I seem to gobble down foods, I don't end up feeling stuffed because of eating to much. C. At times, I tend to eat quickly and then, I feel uncomfortably full afterwards. D. I have the habit of bolting down my food, without really chewing it. When this happens I usually feel uncomfortably stuffed because I've eaten to much. Response Group 2: B Group 3 A. I feel capable to control my eating urges when I want to. B. I feel like I have failed to control my eating more than the average person. C. I feel utterly helpless when it comes to feeling in control of my eating urges. D. Because I feel so helpless about controlling my eating I have become very desperate about trying to get control. Response Group 3: C Group 4 A. I don't have the habit of eating when I'm bored. B. I sometimes eat when I'm bored, but often I'm able to get busy and get my mind off food. C. I have a regular habit of eating when I'm bored, but occasionally, I can use some other activity to get my mind off eating. D. I have a strong habit of eating when I'm bored. Nothing seems to help me breath the habit. Response Group 4: C Group 5 A. I'm usually physically hungry when I eat something. B. Occasionally, I eat something on impulse even though I really am not hungry. C. I have the regular habit of eating foods, that I might not really enjoy, to satisfy a hungry feeling even though physically, I don't need the food. D. Although I'm not physically hungry, I get a hungry feeling in my mouth that only seems to be satisfied when I eat a food, like sandwich, that fills my mouth. Sometimes, when I eat the food to satisfy my mouth hunger, I then spit the food out so I won't gain weight. Response Group 5: B Group 6 A. I don't feel any guilt or self-hate after I overeat. B. After I overeat, occasionally I feel guilt or self-hate. C. Almost all the time I experience strong guilt or self-hate after I overeat. Response Group 6: C Group 7 A. I don't lose total control of my eating when dieting even after periods when I overeat. B. Sometimes when I eat a forbidden food on a diet, I feel like I blew it and eat even more. C. Frequently, I have the habit of saying to myself, I've blown it now, why not go all the way, when I overeat on a diet. When that happens I eat more. D. I have a regular habit of starting a strict diets for myself but I break the diets by going on an eating binge. My life seems to be either a feast or famine. Response Group 7: B Group 8 A. I rarely eat so much food that I feel uncomfortably stuffed afterwards. B. Usually about once a month, I each such a quantity of food, I end up feeling very stuffed. C. I have regular periods during the month when I eat large amounts of food, either at mealtime or at snacks. D. I eat so much food that I regularly feel quite uncomfortable after eating and sometimes a bit nauseous. Response Group 8: C Group 9 A. My level of calorie intake does not go up very high or go down very low on a regular basis. B. Sometimes after I overeat, I will try to reduce my caloric intake to almost nothing to compensate for the excess calories I've eaten. C. I have a regular habit of overeating during the night. It seems that my routine is not to be hungry in the morning but overeat in the evening. D. In my adult years, I have had week-long periods where I practically starve myself. This follows periods when I overeat. It seems I live a life of either feast or famine. Response Group 9: C Group 10 A. I usually am able to stop eating when I want to. I know when enough is enough. B. Every so often, I experience a compulsion to eat which I can't seem to control. C. Frequently, I experience strong urges to eat which I seem unable to control, but at other times I can control my eating urges. D. I feel incapable of controlling urges to eat. I have a fear of not being able to stop eating voluntarily. Response Group 10: C Group 11 A. I don't have any problem stopping eating when I feel full. B. I usually can stop eating when I feel full but occasionally overeat leaving me feeling uncomfortably stuffed. C. I have a problem stopping eating once I start and usually I feel uncomfortably stuffed after I eat a meal. D. Because I have a problem not being able to stop eating when I want, I sometimes have to induce vomiting to relieve my stuffed feeling. Response Group 11: B Group 12 A. I seem to eat just as much when I'm with others, Family social gatherings as when I'm by myself. B. Sometimes, when I'm with other persons, I don't eat as much as I want to eat because I'm self-conscious about my eating. C. Frequently, I eat only a small amount of food when others are present, because I'm very embarrassed about my eating. D. I feel so ashamed about overeating that I pick times to overeat when I know no one will see me. I feel like a closet eater. Response Group 12: C Group 13 A. I eat three meals a day with only an occasional between meal snack. B. I eat 3 meals a day, but I also normally snack between meals. C. When I am snacking heavily, I get in the habit of skipping regular meals. D. There are regular periods when I seem to be continually eating, with no planned meals. Response Group 13: C Group 14 A. I don't think much about trying to control unwanted eating urges. B. At least some of the time, I feel my thoughts are pre-occupied with trying to control my eating urges. C. I feel that frequently I spend much time thinking about how much I ate or about trying not to eat anymore. D. It seems to me that most of my waking hours are pre-occupied by thoughts about eating or not eating. I feel like I'm constantly struggling not to eat. Response Group 14: C Group 15 A. I don't think about food a great deal. B. I have strong craving for food but they last only for brief periods of time. C. I have days when I can't seem to think about anything else but food. D. Most of my days seem to be pre-occupied with thoughts about food. I feel like I live to eat. Response Group 15: B Group 16 A. I usually know whether or not I'm physically hungry. I take the right portion of food to satisfy me. B. Occasionally, I feel uncertain about knowing whether or not I'm physically hungry. A these times it's hard to know how much food I should take to satisfy me. C. Even though I might know how many calories I should eat, I don't have any idea what is a normal amount of food for me. Response Group 16: B Binge Eating Score: 25 Score less than 17 Minimal Risk Score between 18-26 Moderate Risk Score between 27-46 High Risk Assessment & Plan Assessment & Plan (1) Adjustment disorder: Code(s): F43.20 - Adjustment disorder, unspecified Qualifiers: Adjustment disorder type: unspecified type Qualified Code(s): F43.20 - Adjustment disorder, unspecified Plan: PT has been cleared form BH standpoint, and presents as a good candidate for bariatric surgery, however due to moderate scores in BES and history of stress eating, he would benefit to have a therapist and/or get support post-op. Pt doesn't need a follow up but is advised to have another appointment post-op. Provider advised of available resources and importance of maintain communication with P providers an follow recommendations for success with weight-loss journey. Telehealth Telehealth Location of provider rendering services: other Location of patient: other ([place], [place]. ) Patient Identification confirmed using: Name, : Yes Telehealth method: voice only Patient verbally consented to treatment: Yes Patient verbally consented to billing insurance company: Yes Patient informed of any privacy concerns related to visit: No Minutes spent on Phone/Video with Pt.: 75 Coding Level of Care Code New Pt Tele Psy Diag Eduardo ([id number]) Patient Type New Diagnoses Adjustment disorder, unspecified type F43.20 Adjustment disorder type: unspecified type Time Spent (min) 75 Comment 9:00am - 10:15am
== END 2023-05-10 10:36 | disposition home or self-care (01) ==
LOC: HO.HBST 09:16
PROVIDERS: Visit Provider Counselor Mental Health
DX: F43.20 Adjustment disorder, unspecified (principal)
CPT/HCPCS: 90791

== ENCOUNTER → 2023-05-10 09:15 | Outpatient (BNVA) | payer OTHER, SELFPAY | PROVIDERS: Visit Provider Counselor Mental Health ==

== ENCOUNTER 2023-05-17 07:25 | Day surgery (SDC) | payer OTHER, SELFPAY ==
--- NOTE | 2023-05-13 12:25 | MHC.SHP ---
Pre-Procedural Eval Section A Date of Service: 05/13/23 The patient is an INPATIENT: No The History & Physical has been completed within 30 days and I have reviewed it.: Yes Section B Chief Complaint: Esophagitis, unspecified with bleeding Relevant Family History (Specify if Yes): No Relevant Social History: None Present Medications: None Medical History: No relevant PMH History of Previous Operations: No relevant previous surgery Allergies: Allergies Allergy/AdvReac Type Severity Reaction Status Date / Time No Known Allergies Allergy Verified 04/05/23 12:32 Review of Systems Sugical H&P ROS: Negative: Constitution, Cardiovascular, Respiratory, Neurological, Psychiatric, Hem-Onc, Allergic/Immunologic, Gastrointestinal, Genitourinary, Musculoskeletal, Integumentary, Endocrine and Eyes/Ears/Nose/Throat Exam Surgical H&P Exam: Normal: HEENT, Normal: Heart, Normal: Lungs, Normal: Extremities, Normal: Abdomen, Normal: Skin and Normal: Neurological Plan Diagnosis/Plan: Unchanged (EGD to assess for esophagitis. Risks for perforation and bleeding were discussed with patient. She is in agreement with the plan) I have reviewed the history and physical and performed a pertinent physical examination on my patient. No changes have occurred unless specified. Time Spent With Patient Time: Total time managing care of this patient today ____ minutes.
--- NOTE | 2023-05-16 10:28 | P.CONAN_ITS ---
Documented by User: Lacey Goldberg NP 05/16/23 10:29 HPI - Anesthesia Eval Consult details Narrative: 32yo M for Upper Endoscopy [facility] Active Problems Active Problems: All Active Problems (Updated 04/05/23 @ 12:34 by Perico Brown MD) CHIDI (obstructive sleep apnea) (Acute) Essential hypertension (Acute) Morbid obesity (Acute) Past Medical History Medical History Morbid obesity Mood disorder Seborrheic dermatitis Essential hypertension CHIDI (obstructive sleep apnea) Family History Family History Father Diabetes Mother HTN (hypertension) Acute arthritis Sleep apnea Son Autism Daughter No problems noted. Family history of problems with anesthesia: No Surgical History Surgical History History of endoscopy Hx of appendectomy History of Problems with Anesthesia: No Social History Social History Household Members: Significant Other Alcohol intake: current Alcohol intake frequency: holidays/special occasions only Patient Tobacco Use Status: Never used Tobacco Use of substances other than those prescribed or required for medical reasons: No Substance Use Type: Marijuana Are you DNR?: No Advance Directives: No Advance Directives Information Provided: Yes Meds Allergies Allergy/AdvReac Type Severity Reaction Status Date / Time No Known Allergies Allergy Verified 05/17/23 07:36 Home Medications Medication Instructions Recorded Confirmed Last Taken Type No Known Home Meds 03/31/23 05/17/23 Unknown History Exam Pertinent Lab Results Pertinent Lab Results: Laboratory Tests 04/06/23 09:28 WBC 4.8 Hgb 15.1 Hct 45.0 Plt Count 196 Sodium 140 Potassium 3.8 Chloride 111 H Carbon Dioxide 21 L BUN 12 Creatinine 0.75 Assessment and Plan Assessment Anesthesia Assessment: Chart Reviewed Final Anesthetic Review Family History of Problems with Anesthesia: No History of Problems with Anesthesia: No Documented by User: Jacinta Wesley MD 05/17/23 08:27 [facility] Past Medical History Medical History Morbid obesity Mood disorder Seborrheic dermatitis Essential hypertension CHIDI (obstructive sleep apnea) Family History Family History Father Diabetes Mother HTN (hypertension) Acute arthritis Sleep apnea Son Autism Daughter No problems noted. Surgical History Surgical History History of endoscopy Hx of appendectomy Social History Social History Household Members: Significant Other Alcohol intake: current Alcohol intake frequency: holidays/special occasions only Patient Tobacco Use Status: Never used Tobacco Use of substances other than those prescribed or required for medical reasons: No Substance Use Type: Marijuana Are you DNR?: No Advance Directives: No Advance Directives Information Provided: Yes Meds Allergies Allergy/AdvReac Type Severity Reaction Status Date / Time No Known Allergies Allergy Verified 05/17/23 07:36 Home Medications Medication Instructions Recorded Confirmed Last Taken Type No Known Home Meds 03/31/23 05/17/23 Unknown History Exam Airway Mallampati Class: II TM Dist: >3cm Neck ROM: Limited Heart: rrr Lungs: cta Assessment and Plan Assessment Anesthesia Assessment: Anesthesia Plan Discussed Final Anesthetic Review NPO: Yes ASA Class: III (chidi,morbid obesity ) Final Preanesthetic Review: No Changes in Pt Med Stat, Meds/Allgs Chart Reviewed, Consent Obtained/Reviewed and Anes Risks/Benef Reviewed Patient Risk: Intermediate Procedure Risk: Low Anesthetic Plan Anesthetic Plan: MAC: Disposition: Standard PACU
[2023-05-17 07:34] VITALS: BMI 47.0
[2023-05-17 07:50] VITALS: BP 133/72; PULSE 83; RESP 16; TEMP 36.3; O2SAT 97
[2023-05-17] MEDS: Lactated Ringers 1,000 ML 100 ML IVCONT (07:52)
--- NOTE | 2023-05-17 08:01 | P.BOP_ITS ---
Brief Operative Note Date of Service: 05/17/23 Pre-op diagnosis: GERD Post-op diagnosis: same Procedure: PROCEDURE DATE: 05/17/2023 PREOPERATIVE DIAGNOSIS: GERD POSTOPERATIVE DIAGNOSIS: ?Same as above. 1) small hiatal hernia, 2) esophagitis PROCEDURE: [id number]-[id number] with biopsies Surgeon: Ayden Brown M.D.. Ph.D. Machine Operator Hop Worker: None ? Anesthesia: IV sedation Estimated blood loss: ?Minimal FINDINGS AND PROCEDURE: ? OPERATIVE INDICATIONS: ?The patient is a 32 year old male known to me who is interested in bariatric surgery. The patient has GERD. Based on this information I recommended an upper endoscopy to evaluate the patient's symptoms. Risks and complications of the surgery were discussed with the patient in advance particularly the possibility of perforation or bleeding that may require surgical intervention. The patient understood the risks and was in agreement with the plan. ? PROCEDURE: After informed consent was obtained by the patient, the patient was ?transferred to the Operating Room and was placed in the supine position.? After successful induction of IV sedation, a mouth block was inserted and the patient was placed in the left lateral decubitus position. An upper endoscopy was performed next, the oropharynx and esophagus appeared within the normal limits. There was a small 2cm hiatal hernia. The z-line was irregular with tongues of gastric mucosa protruding into the esophagus in less than 50% circumference.. Two biopsies were obtained from the distal esophagus 2- 3 cm proximal to the GE junction and two additional biopsies from the GE junction. The stomach was entered and it appeared to be of normal size. There was no stricture or ulcer. A biopsy was obtained from the distal antrum. No significant bleeding was noted from any of the biopsy sites. The scope was then advanced into the duodenum which appeared to be normal as well. At that point the duodenum ?and the stomach were decompressed and the scope was withdrawn from the patient's mouth. The patient extubated and was transferred in stable condition to the Recovery Room for further care. I was present and performed all steps of the procedure. There were no residents to assist with this case. Kraig Brown M.D., Ph.D. Surgeon: Perico Brown MD Anesthesia: MAC Was an Machine Operator Hop Worker used for this Procedure?: No Estimated blood loss (mL): 0 IV fluids (mL): 400 Urine output (mL): 0 Pathology: other (GEJx2, distal esophagus x2, proximal stomach x1, antrum x1) Condition: stable Disposition: PACU
[2023-05-17 08:58] VITALS: BP 122/53; PULSE 88; RESP 20; TEMP 36.2; O2SAT 98
[2023-05-17 09:13] VITALS: BP 130/76; PULSE 81; RESP 16; O2SAT 97
[2023-05-17 09:28] VITALS: PULSE 78; RESP 16; TEMP 36.2; O2SAT 98
== END 2023-05-17 10:23 | disposition home or self-care (01) ==
PROVIDERS: Visit Provider Surgery
PROC: 0DJ08ZZ Inspection of Upper Intestinal Tract, Via Natural or Artificial Opening Endoscopic (ICD-10-PCS; CPT 43235; principal; 2023-05-17 09:10)
DX: K21.00 Gastro-esophageal reflux disease with esophagitis, without bleeding (principal); K44.9 Diaphragmatic hernia without obstruction or gangrene; K29.50 Unspecified chronic gastritis without bleeding; E66.01 Morbid (severe) obesity due to excess calories; G47.30 Sleep apnea, unspecified; I10 Essential (primary) hypertension
CPT/HCPCS: 43239; 88305; 88342; J1100; J2704

== ENCOUNTER → 2023-05-17 07:25 | Outpatient (BNV) | payer OTHER, SELFPAY | PROVIDERS: Visit Provider Surgery | DX: K20.90 Esophagitis, unspecified without bleeding (principal) | CPT/HCPCS: 43239 ==

== ENCOUNTER 2023-06-02 08:08 | Outpatient (AMB) | payer OTHER, SELFPAY ==
--- NOTE | 2023-06-02 08:56 | A.OFFVIS_ITS ---
Intake VS Expanded 06/02/23 09:05 Height 5 ft 8 in Weight 304 lb 6 oz BMI 46.3 Body Fat % 30.2 Body Fat Mass 91.9 Fat Free Mass 212.6 Visceral Fat Rating 28 Body Water % 50.4 Body Water Mass 153.5 Intake Visit Reasons: TV Follow Up SWL Allergies No Known Allergies Allergy (Verified 05/17/23 07:36) HPI TV Follow Up SWL 2 HPI Details Start time: 8.52am, End time: 9.12am ?I spent 15 minutes speaking with the patient on the phone plus an additional 5 minutes reviewing and updating records for a total of 20 minutes HPI Comments History of Present Illness Details Is doing one premade Premier protein shake, 3 Zone Perfect protein bars and one meal (10 forks of protein and 10 forks of salad or vegetables) Exercise: none now due to hurting his ankle [facility] Medical History Morbid obesity Mood disorder Seborrheic dermatitis Essential hypertension CHIDI (obstructive sleep apnea) Surgical History History of endoscopy Hx of appendectomy Family History Father Diabetes Mother HTN (hypertension) Acute arthritis Sleep apnea Son Autism Daughter No problems noted. Social History Household Members: Significant Other Alcohol intake: current Alcohol intake frequency: holidays/special occasions only Patient Tobacco Use Status: Never used Tobacco Substance Use Type: Marijuana Assessment & Plan Assessment & Plan (1) Morbid obesity: Code(s): E66.01 - Morbid (severe) obesity due to excess calories Plan: 1. Continue same nutritional plan of 1 premade Premier protein shake, 3 Zone Perfect protein bars and one meal (10 forks of protein and 10 forks of salad or vegetables) 2. Let me know when you get the powdered Premier protein shakes 3. Start using the stationary bike for 400 calories, 5 days per week. Goal is to burn 2000 calories per week 4. Send me weight measurements weekly on Saturdays as of next week Telehealth Telehealth Location of provider rendering services: practice address Location of patient: address on file Patient Identification confirmed using: Name, : Yes Telehealth method: voice only Patient verbally consented to treatment: Yes Patient verbally consented to billing insurance company: Yes Patient informed of any privacy concerns related to visit: Yes Minutes spent on Phone/Video with Pt.: 20 Coding Level of Care Code Tele Est Pt Level 3 (18762) Diagnoses Morbid obesity E66.01 Time Spent (min) 20
[2023-06-02 09:05] VITALS: BMI 46.3
== END 2023-06-02 09:12 | disposition home or self-care (01) ==
LOC: HO.HBS 08:08
PROVIDERS: Visit Provider Surgery
DX: E66.01 Morbid (severe) obesity due to excess calories (principal)
CPT/HCPCS: 99213

== ENCOUNTER → 2023-06-02 08:08 | Outpatient (BNVA) | payer OTHER, SELFPAY | PROVIDERS: Visit Provider Surgery ==

== ENCOUNTER 2023-06-22 09:44 | Outpatient (REF) | payer OTHER, SELFPAY ==
--- NOTE | ~2023-06-22 | FL_ITS ---
EXAMINATION: XR FLUOROSCOPY UPPER GI WITH AIR CLINICAL INFORMATION: Preop evaluation prior to bariatric surgery COMPARISON: None TECHNIQUE: Fluoroscopic air contrast upper GI examination was performed utilizing standard techniques with thin and thick barium and effervescent granules. Numerous spot images were obtained. FINDINGS: Dual and single contrast images of the esophagus demonstrate normal caliber, contour, and mucosal pattern. No evidence of stricture, mass, or ulcerations identified. Esophageal peristalsis was normal. A small type I hiatal hernia is present. Gastroesophageal reflux is seen up to the thoracic inlet Dual contrast and single contrast images of the stomach demonstrated a normal contour. Evaluation of the mucosal pattern is limited due to lack of distention from the effervescent granules, however there is no obvious mass, ulceration, or other abnormality. Contrast freely passed into the gastric antrum and duodenal bulb without delay. Single and air-contrast images of the duodenal bulb demonstrate no abnormality. The duodenal sweep has a normal appearance, course, and mucosal fold appearance. No malrotation. The imaged proximal jejunum has a normal fold pattern and caliber. FLUOROSCOPY TIME: 3 minutes 33 seconds Number of Spot Images: 8 Number of Cine: 12 DOSE AREA PRODUCT: [id number] uGy-m2 (microgray-meter squared) FL/FL upper GI w air IMPRESSION: 1. Small type I hiatal hernia 2. Significant gastroesophageal reflux This procedure was performed by Larry Webber PA-C, and supervised by Dr. Richards
== END 2023-06-22 09:45 | disposition home or self-care (01) ==
LOC: HO.XRAY 09:44
PROVIDERS: Visit Provider Surgery
DX: E66.01 Morbid (severe) obesity due to excess calories (principal); I10 Essential (primary) hypertension; G47.33 Obstructive sleep apnea (adult) (pediatric)
CPT/HCPCS: 74246

== ENCOUNTER → 2023-06-22 09:45 | Outpatient (BNV) | payer OTHER, SELFPAY | PROVIDERS: Visit Provider Radiology Diagnostic Radiology | DX: Z01.818 Encounter for other preprocedural examination (principal) | CPT/HCPCS: 74246 ==

== ENCOUNTER 2023-06-23 08:08 | Outpatient (AMB) | payer OTHER, SELFPAY ==
--- NOTE | 2023-06-23 09:19 | A.OFFVIS_ITS ---
Intake VS Expanded 06/23/23 09:27 Height 5 ft 8 in Weight 39 lb 6 oz BMI 6.0 Body Fat % 30.8 Body Fat Mass 95.3 Fat Free Mass 214.2 Visceral Fat Rating 29 Body Water % 50 Body Water Mass 154.8 Intake Visit Reasons: TV Follow Up SWL Allergies No Known Allergies Allergy (Verified 05/17/23 07:36) HPI TV Follow Up SWL HPI Details Start time: 8.07am, End time: 9.32am ?I spent 20 minutes speaking with the patient on the phone plus an additional 5 minutes reviewing and updating records for a total of 25 minutes HPI Comments History of Present Illness Details Just acquired the proper Premier shakes and the Zone Perfect bars and has purchased a stationary bike [facility] Medical History Morbid obesity Mood disorder Seborrheic dermatitis Essential hypertension CHIDI (obstructive sleep apnea) Surgical History History of endoscopy Hx of appendectomy Family History Father Diabetes Mother HTN (hypertension) Acute arthritis Sleep apnea Son Autism Daughter No problems noted. Social History Household Members: Significant Other Alcohol intake: current Alcohol intake frequency: holidays/special occasions only Patient Tobacco Use Status: Never used Tobacco Substance Use Type: Marijuana Assessment & Plan Assessment & Plan (1) Morbid obesity: Code(s): E66.01 - Morbid (severe) obesity due to excess calories Plan: 1. Please start one Premier protein shake (1 scoop in almond milk) at 8-10am, a Zone Perfect protein bar at 11am-1pm, a Premier protein shake (1 scoop in 8oz almond milk) at 2pm-4pm, dinner at 5pm (12 forks of protein and 12 forks of salad or vegetables) and 2 more Zone Perfect protein bars at 7pm-9pm and 9pm- 11pm. 2. Start stationary bike for 300 calories daily for a goal of 2000 calories per week 3. Please send weight measurements weekly on Fridays Telehealth Telehealth Location of provider rendering services: practice address Location of patient: address on file Patient Identification confirmed using: Name, : Yes Telehealth method: voice only Patient verbally consented to treatment: Yes Patient verbally consented to billing insurance company: Yes Patient informed of any privacy concerns related to visit: Yes Minutes spent on Phone/Video with Pt.: 25 Coding Level of Care Code Tele Est Pt Level 3 (21227) Diagnoses Morbid obesity E66.01 Time Spent (min) 25
== END 2023-06-23 09:34 | disposition home or self-care (01) ==
LOC: HO.HBS 08:08
PROVIDERS: Visit Provider Surgery
DX: E66.01 Morbid (severe) obesity due to excess calories (principal)
CPT/HCPCS: 99213

== ENCOUNTER → 2023-06-23 08:08 | Outpatient (BNVA) | payer OTHER, SELFPAY | PROVIDERS: Visit Provider Surgery ==

== ENCOUNTER 2023-06-26 14:08 | Outpatient (AMB) | payer OTHER, SELFPAY ==
--- NOTE | 2023-06-26 13:43 | A.OFFVIS_ITS ---
Intake Intake Visit Reasons: (TV) F/U SWL Allergies No Known Allergies Allergy (Verified 05/17/23 07:36) HPI Nutrition Presentation Reason for consult elevated BMI Diet Assmnt Details Todays nutrition appt was primarily education regarding post op diet [facility] online classes: completed in [place] but scored 0% on most of the exams . he retook them in Gabonese and reports it was very helpful . we reviewed, questions were answered and pt was educated on some misconceptions Dietary counseling reduction Diagnosis Nutrition problem #1 food nutri know defi As related to (etiology) #1 unwilling to learn/apply As evidenced by (sign/symptom) #1 knowledge deficit of diet and verbalize inaccurate info Monitoring/Goals Nutrition problem monitoring total energy intake, level of knowledge/skill, total PRO intake, total CHO intake and weight Outcome progress progressing Learning/Education Readiness to learn fair Stages of change action Educational materials provided Yes Most Recent Diabetes Results: No Data to Display [facility] Medical History Morbid obesity Mood disorder Seborrheic dermatitis Essential hypertension CHIDI (obstructive sleep apnea) Surgical History History of endoscopy Hx of appendectomy Family History Father Diabetes Mother HTN (hypertension) Acute arthritis Sleep apnea Son Autism Daughter No problems noted. Social History Household Members: Significant Other Alcohol intake: current Alcohol intake frequency: holidays/special occasions only Patient Tobacco Use Status: Never used Tobacco Substance Use Type: Marijuana Assessment & Plan Assessment & Plan (1) Morbid (severe) obesity due to excess calories: Code(s): E66.01 - Morbid (severe) obesity due to excess calories Plan see below Patient Instructions: Patient is cleared from a nutrition standpoint for bariatric surgery. Educational requirements have been completed. Reviewed vitamin supplementation and commitment to protein shake for several months post surgery. Encouraged communication with office as needed Telehealth Telehealth Location of provider rendering services: practice address Location of patient: address on file Patient Identification confirmed using: Name, : Yes Telehealth method: voice only Patient verbally consented to treatment: Yes Patient verbally consented to billing insurance company: Yes Patient informed of any privacy concerns related to visit: Yes Minutes spent on Phone/Video with Pt.: 20 Coding Level of Care Code Nutr Indiv Subseq (42834) Diagnoses Morbid (severe) obesity due to excess calories E66.01 Time Spent (min) 20
== END 2023-06-26 14:50 | disposition home or self-care (01) ==
LOC: HO.HBS 14:08
PROVIDERS: Visit Provider Dietitian, Registered
DX: E66.01 Morbid (severe) obesity due to excess calories (principal)

== ENCOUNTER → 2023-06-26 14:08 | Outpatient (BNVA) | payer OTHER, SELFPAY | PROVIDERS: Visit Provider Dietitian, Registered | DX: E66.01 Morbid (severe) obesity due to excess calories (principal); Z71.3 Dietary counseling and surveillance | CPT/HCPCS: 97803 ==

== ENCOUNTER 2023-07-14 07:52 | Outpatient (AMB) | payer OTHER, SELFPAY ==
--- NOTE | 2023-07-14 09:24 | A.OFFVIS_ITS ---
Intake VS Expanded 07/14/23 09:31 Height 5 ft 8 in Weight 303 lb 6 oz BMI 46.1 Body Fat % 30.1 Body Fat Mass 91.3 Fat Free Mass 212.2 Intake Visit Reasons: TV Follow Up SWL Allergies No Known Allergies Allergy (Verified 05/17/23 07:36) HPI TV Follow Up SWL HPI Details Start time: 9.16am, End time: 9.36am ?I spent 15 minutes speaking with the patient on the phone plus an additional 5 minutes reviewing and updating records for a total of 20 minutes HPI Comments History of Present Illness Details Is doing 2 Premier protein shakes (1 scoop each in 8oz almond milk), 3 Zone Perfect protein bars and one meal (12 forks of meat and 12 forks of salad or vegetables) Exercise: stationary bike daily for 300 calories [facility] Medical History Morbid obesity Mood disorder Seborrheic dermatitis Essential hypertension CHIDI (obstructive sleep apnea) Surgical History History of endoscopy Hx of appendectomy Family History Father Diabetes Mother HTN (hypertension) Acute arthritis Sleep apnea Son Autism Daughter No problems noted. Social History Household Members: Significant Other Alcohol intake: current Alcohol intake frequency: holidays/special occasions only Patient Tobacco Use Status: Never used Tobacco Substance Use Type: Marijuana Assessment & Plan Assessment & Plan (1) Morbid obesity: Code(s): E66.01 - Morbid (severe) obesity due to excess calories Plan: 1. Continue same nutritional plan of 2 Premier protein shakes (1 scoop each in 8oz almond milk), 3 Zone Perfect protein bars and one meal (12 forks of meat and 12 forks of salad or vegetables) 2. Exercise: continue stationary bike daily for 300 calories 3. Continue to send measurements weekly on Fridays Telehealth Telehealth Location of provider rendering services: practice address Location of patient: address on file Patient Identification confirmed using: Name, : Yes Telehealth method: voice only Patient verbally consented to treatment: Yes Patient verbally consented to billing insurance company: Yes Patient informed of any privacy concerns related to visit: Yes Minutes spent on Phone/Video with Pt.: 20 Coding Level of Care Code Tele Est Pt Level 3 (04927) Diagnoses Morbid obesity E66.01 Time Spent (min) 20
[2023-07-14 09:31] VITALS: BMI 46.1
== END 2023-07-14 09:37 | disposition home or self-care (01) ==
LOC: HO.HBS 07:52
PROVIDERS: Visit Provider Surgery
DX: E66.01 Morbid (severe) obesity due to excess calories (principal)
CPT/HCPCS: 99213

== ENCOUNTER → 2023-07-14 07:52 | Outpatient (BNVA) | payer OTHER, SELFPAY | PROVIDERS: Visit Provider Surgery ==

== ENCOUNTER 2023-09-25 08:23 | Outpatient (AMB) | payer OTHER, SELFPAY ==
[2023-09-25 10:52] VITALS: BMI 48.7
--- NOTE | 2023-09-25 10:52 | MHC.OFFVISWM ---
VS Expanded 09/25/23 10:52 Height 5 ft 8 in Weight 320 lb 2 oz BMI 48.7 Body Fat % 32 Body Fat Mass 102.4 Fat Free Mass 217.7 Visceral Fat Rating 30 Body Water % 49.1 Body Water Mass 157.2 Intake Visit Reasons: TV Re-Est SWL Allergies No Known Allergies Allergy (Verified 05/17/23 07:36) HPI HPI TV Re-Est SWL: Details: Start time: 10.40am, End time: 10.57am ?I spent 15 minutes speaking with the patient on the phone plus an additional 2 minutes reviewing and updating records for a total of 17 minutes HPI Comments Details: Does not like the powdered Premier shakes Very stressed as he has lost his job [facility] Medical History Morbid obesity Mood disorder Seborrheic dermatitis Essential hypertension CHIDI (obstructive sleep apnea) Surgical History History of endoscopy Hx of appendectomy Family History Father Diabetes Mother HTN (hypertension) Acute arthritis Sleep apnea Son Autism Daughter No problems noted. Social History Household Members: Significant Other Alcohol intake: current Alcohol intake frequency: holidays/special occasions only Patient Tobacco Use Status: Never used Tobacco Substance Use Type: Marijuana Telehealth Telehealth Telehealth Platform: Telephone Location of provider rendering services: practice address Location of patient: address on file Patient Identification confirmed using: Name, : Yes Telehealth method: voice only Patient verbally consented to treatment: Yes Patient verbally consented to billing insurance company: Yes Patient informed of any privacy concerns related to visit: Yes Minutes spent on Phone/Video with Pt.: 17 Assessment & Plan Assessment & Plan (1) Morbid obesity: Code(s): E66.01 - Morbid (severe) obesity due to excess calories Category: Medical Plan: 1. Change the nutritional plan to Premier liquid shake (mix 5oz of Premier with 3oz almond milk) at 8-10am Zone Perfect bar at 11-1pm Premier liquid shake (mix 5oz of Premier with 3oz almond milk) at 2-4pm Dinner at 5pm (12 forks of protein and 12 forks of salad) Zone Perfect bar at 7-9pm Zone Perfect bar at 9-11pm Send me weight measurements weekly on Fridays Use the bike for 300 calories per day daily 2. Start the bike for 300 calories per day, daily 3. Send me a picture of the dinner plate after you measure it but before you eat it 4. Send me your weight measurements weekly on
== END 2023-09-25 10:58 | disposition home or self-care (01) ==
LOC: HO.HBS 08:23
PROVIDERS: Visit Provider Surgery
DX: E66.01 Morbid (severe) obesity due to excess calories (principal)
CPT/HCPCS: 99212

== ENCOUNTER → 2023-09-25 08:23 | Outpatient (BNVA) | payer OTHER, SELFPAY | PROVIDERS: Visit Provider Surgery ==

== ENCOUNTER → 2024-01-03 12:28 | Outpatient (BNVA) | payer OTHER, SELFPAY | PROVIDERS: Visit Provider Registered Nurse | DX: S86.311A Strain of muscle(s) and tendon(s) of peroneal muscle group at lower leg level, right leg, initial encounter (principal); X50.3XXA Overexertion from repetitive movements, initial encounter | CPT/HCPCS: 99203 ==

== ENCOUNTER → 2024-01-05 09:14 | Outpatient (BNVA) | payer OTHER, SELFPAY | PROVIDERS: Visit Provider Registered Nurse | DX: S86.111A Strain of other muscle(s) and tendon(s) of posterior muscle group at lower leg level, right leg, initial encounter (principal); X50.3XXA Overexertion from repetitive movements, initial encounter | CPT/HCPCS: 99213 ==

== ENCOUNTER → 2024-01-12 11:11 | Outpatient (BNVA) | payer OTHER, SELFPAY | PROVIDERS: Visit Provider Registered Nurse | DX: S86.311D Strain of muscle(s) and tendon(s) of peroneal muscle group at lower leg level, right leg, subsequent encounter (principal); X50.3XXD Overexertion from repetitive movements, subsequent encounter | CPT/HCPCS: 99213 ==

== ENCOUNTER → 2024-01-25 15:05 | Outpatient (BNVA) | payer OTHER, SELFPAY | PROVIDERS: Visit Provider Physician Assistant Medical | DX: S86.911D Strain of unspecified muscle(s) and tendon(s) at lower leg level, right leg, subsequent encounter (principal); X50.3XXD Overexertion from repetitive movements, subsequent encounter | CPT/HCPCS: 99213 ==

== ENCOUNTER → 2024-02-09 10:55 | Outpatient (BNVA) | payer OTHER, SELFPAY | PROVIDERS: Visit Provider Registered Nurse | DX: S86.311D Strain of muscle(s) and tendon(s) of peroneal muscle group at lower leg level, right leg, subsequent encounter (principal); X50.3XXD Overexertion from repetitive movements, subsequent encounter | CPT/HCPCS: 99213 ==

== ENCOUNTER 2024-02-13 10:00 | Outpatient (RCR) | payer OTHER, BC, SELFPAY | END 2024-04-02 10:57 | disposition home or self-care (01) | LOC: HO.PT 10:00 | PROVIDERS: Visit Provider Registered Nurse | DX: S86.911D Strain of unspecified muscle(s) and tendon(s) at lower leg level, right leg, subsequent encounter (principal) | CPT/HCPCS: 97110; 97112; 97140; 97161; 97530 ==

== ENCOUNTER → 2024-02-23 10:03 | Outpatient (BNVA) | payer OTHER, SELFPAY | PROVIDERS: Visit Provider Physician Assistant | DX: S86.111D Strain of other muscle(s) and tendon(s) of posterior muscle group at lower leg level, right leg, subsequent encounter (principal); X50.3XXD Overexertion from repetitive movements, subsequent encounter | CPT/HCPCS: 99213 ==

== ENCOUNTER 2024-03-06 11:27 | Outpatient (AMB) | payer BC, SELFPAY ==
[2024-03-06 11:29] VITALS: BP 152/86; PULSE 103; O2SAT 98; BMI 48.0
--- NOTE | 2024-03-06 11:29 | MHC.PC.OV ---
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 He was previously being followed by weight management clinic for obesity. Patient was previously being seen by weight management and did lose weight and saw improvement in his blood pressure and obstructive sleep apnea however he did gain the weight back and has noticed to these diagnoses and gotten worse. He has started using his CPAP again and has noticed his blood pressure climbing at his director imaging visits. He is following with physical therapy for right lower extremity injury and has found this helpful but does still occasionally get pain. He does not want to try any medications and would like to manage these diagnoses conservatively. [facility] Medical History Morbid obesity Mood disorder Seborrheic dermatitis Essential hypertension CHIDI (obstructive sleep apnea) Surgical History History of endoscopy Hx of appendectomy Family History Father Diabetes Mother HTN (hypertension) Acute arthritis Sleep apnea Son Autism Daughter No problems noted. Social History Household Members: Significant Other Housing: Apartment Alcohol intake: current Alcohol intake frequency: holidays/special occasions only Patient Tobacco Use Status: Never used Tobacco Substance Use Type: Marijuana service: No Current occupational status: employed Current occupation: [employer] Cognitive needs: No Hearing needs: No Vision needs: No Questionnaire PHQ-9 Over the last 2 weeks, how often have you been bothered by any of the following problems? 1. Little interest or pleasure in doing things: nearly every day 2. Feeling down, depressed, or hopeless: not at all 3. Trouble falling or staying asleep, or sleeping too much: several days 4. Feeling tired or having little energy: several days 5. Poor appetite or overeating: nearly every day 6. Feeling bad about yourself - or that you are a failure or have let yourself or your family down: more than half the days 7. Trouble concentrating on things, such as reading the newspaper or watching television: not at all 8. Moving or speaking so slowly that other people could have noticed. Or the opposite - being so fidgety or restless that you have been moving around a lot more than usual: several days 9. Thoughts that you would be better off or of hurting yourself in some way: several days Total score: 12 Depression Screening Interpretation: Positive Depression Screening Follow-up: Declines treatment (Declines medication) and Other (Referral placed for counseling) Depression Screening Done: Yes 40471 - PHQ-9 Billing: Yes Source: Developed by Drs. Chong Beach, Lexi Bautista, José Luis Mayer and colleagues, with an educational gracy from [employer]. Thrive Questionnaire Date Thrive assessed: 03/04/24 I am a: Patient What is your living situation today?: I have a steady place to live Within the past 12 months, did the food you bought not last and you didn't have the money to get more?: Often true Within the past 12 months, did you worry whether your food would run out before you got money to buy more?: Never true Do you have trouble paying for medicines?: No Do you have trouble getting transportation to medical appointments?: No Do you have trouble paying your heating and electricity bill?: No Do you have trouble taking care of your child, family member or friend?: No Do you have trouble with day-to-day activities such as bathing, preparing meals, shopping, managing finances, etc.?: No Are you currently unemployed and looking for a job?: No Are you interested in more education?: Yes Please select the resources that you would like help with: None Currently or been in a relationship where the following occur: I choose not to answer THRIVE Score: 1 AUDIT C Alcohol Use Questionnaire (AUDIT-C) 1. How often do you have a drink containing alcohol?: 2-3 times a week 2. How many drinks containing alcohol do you have on a typical day when you are drinking?: 5 or 6 3. How often do you have six or more drinks on one occasion?: Monthly Total Score: 7 HENRY-7 AMB Questionnaire HENRY-7 Date HENRY - 7 assessed: 03/06/24 Feeling nervous, anxious, or on edge: 1 = Several days Not being able to stop or control worryin = Several days Worrying too much about different things: 1 = Several days Trouble relaxin = Several days Being so restless that it is hard to sit still: 1 = Several days Becoming easily annoyed or irritable: 2 = More than half the days Feeling afraid as if something awful might happen: 1 = Several days Total HENRY-7 score (0-4 normal; 5-9 mild; 10-14 moderate; 15-21 severe): 8 Source: Developed by Drs. Chong Beach, Lexi Bautista, José Luis Mayer and colleagues, with an educational gracy from [employer]. HENRY-7 Assessment Billing HENRY-7 Assessment Tool: HENRY-7 Assessment 48610 Review of Systems Const Denies body aches, Denies fatigue, Denies fever(s), Denies frequent falls, Reports headache(s) (Occasional) and Denies weakness Eyes Reports no additional complaints, Denies change in vision and Reports requires corrective lenses ENT Denies dysphagia, Denies dizziness, Denies facial pain, Reports headache(s) (Occasional), Denies nasal congestion and Denies odynophagia Card Denies chest pain, Denies syncope, Denies irregular heart rhythm, Denies leg edema, Denies lightheadedness and Denies dyspnea Resp Denies cough and Denies dyspnea GI Denies constipation, Denies dysphagia, Denies dyspepsia, Denies diarrhea, Denies nausea, Denies odynophagia and Denies vomiting Denies dysuria, Denies urinary frequency, Denies urinary hesitancy and Denies urinary urgency Musc Details: Occasional right lower extremity pain Denies back pain and Denies myalgias Skin/Breast Reports system reviewed and no additional complaints, except as documented Neuro Denies dizziness, Denies syncope, Denies frequent falls, Reports headache(s) (Occasional) and Denies weakness Psych Reports no additional complaints Endo Denies fatigue Physical exam (Primary Care) Vital Signs: Last Vital Signs Pulse 103 H 03/06/24 11:29 BP 152/86 H 03/06/24 11:29 Pulse Ox 98 03/06/24 11:29 Oxygen Delivery Method Room Air 03/06/24 11:29 BMI result Body Mass Index 48.0 Tobacco/Smoking Status: Tobacco use Status Tobacco use date assessed 03/06/24 03/06/24 11:30 Patient Tobacco Use Status Never used Tobacco 03/06/24 11:30 PHQ-9: PHQ-9 Score PHQ-9: Total score 12 03/06/24 11:30 Depression Screening Interpretation: Positive Depression Screening Follow-up: Declines treatment (Declines medication) and Other (Referral placed for counseling) Thrive Assessment: Date of Thrive Assessment Date Thrive assessed 03/04/24 03/06/24 11:30 Currently or been in a relationship where the following occur: I choose not to answer Const General: cooperative, healthy appearing, comfortable and no acute distress Orientation/consciousness: patient oriented x3 HENMT Head: Yes normocephalic Ears: hearing grossly normal bilaterally General nose exam: Normal external nose present Face and sinus: Yes normal facial exam and Yes sinuses nontender Mouth: Normal oral and palatal mucosa present and tongue normal Throat: Yes posterior oropharynx normal Eyes General: appearance normal, both eyes and all related structures Conjunctivae: conjunctivae normal Pupils: Equal, round and reactive pupils present EOM: EOMs intact bilaterally and No Nystagmus present Neck Neck: Yes full ROM and Yes no lymphadenopathy Chest Chest palpation & inspection: normal inspection of the chest Resp Effort & Inspection: normal respiratory effort Auscultation: clear to auscultation bilaterally, no crackles, no rales, no rhonchi and no wheezes Cardio Rate: regular rate Rhythm: regular rhythm Peripheral pulses: radial pulses present and dorsalis pedis present GI Inspection: Yes normal to inspection and No Abdominal wall edema Palpation (GI): Soft to palpation, not firm and nontender Auscultation: normal bowel sounds Rectal Exam - Male: Yes deferred General: Yes no CVA tenderness Back/Spine/Pelvis Back: no CVA tenderness Skin General skin exam: no rashes or lesions noted Neuro General: patient oriented x3 Cranial nerves: Yes Equal, round and reactive pupils present, Yes Midline tongue present, Yes Ability to bilaterally elevate shoulders present and No Nystagmus present Gait exam (Neuro): Normal gait present Extrem General: Yes normal to inspection, Yes full ROM and No edema Psych Speech and movement: Normal speech and movement present Affect: normal affect Attitude: cooperative Insight: Good insight present (Psych) Judgement: Good judgement present (Psych) Coding Level of Care Code New Pt Prev Care 18-39yr(07112 Diagnoses Depression F32.A CHIDI (obstructive sleep apnea) G47.33 Essential hypertension I10 Morbid obesity E66.01 Annual physical exam Z00.00 Additional Codes HENRY-7 Assessment Billing - HENRY-7 Assessment Tool: HENRY-7 Assessment 04874 ([id number]) Assessment & Plan Assessment & Plan (1) Depression: Code(s): F32.A - Depression, unspecified Category: Medical Plan: Patient endorses feelings of anxiety and depression since gaining the weight back. Referral sent for counseling and declines medication at this time. (2) CHIDI (obstructive sleep apnea): Code(s): G47.33 - Obstructive sleep apnea (adult) (pediatric) Category: Medical Plan: Patient uses his CPAP nightly for at least 4 hours per night and gets good benefit from this. Encouraged healthy diet and regular exercise. (3) Essential hypertension: Code(s): I10 - Essential (primary) hypertension Category: Medical Plan: Blood pressure elevated today even when retaken. Patient would like to manage blood pressure conservatively in his declining medication at this time. Advised patient to get [id number] blood pressure cuff and take blood pressures 3-4 times per week and bring log to next appointment. Advised patient that if blood pressure continues to stay elevated we may need to consider medication. Encouraged healthy diet and regular exercise and reduce salt intake. (4) Morbid obesity: Code(s): E66.01 - Morbid (severe) obesity due to excess calories Category: Medical Plan: Encouraged healthy diet and regular exercise. 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 (5) Annual physical exam: Code(s): Z00.00 - Encounter for general adult medical examination without abnormal findings Category: Medical Plan: Patient is up-to-date on all recommended routine screenings and vaccinations for his age. Updated blood work ordered and we will follow up at next visit. Plan This note was constructed using voice recognition software. While every effort has been made to ensure accuracy and project controls scheduler, still areas may have been included sometimes these areas may affect the content or meeting of the given symptoms. Total time spent caring for the patient today was 30 minutes. This includes time spent before the visit reviewing the chart, time spent during the visit, and time spent after the visit and documentation. Orders: Orders Complete Blood Count Auto Diff Today Z00.00 - Encounter for general adult medical examination without abnormal findings Comprehensive Met. Panel Today Z00.00 - Encounter for general adult medical examination without abnormal findings Vitamin B12 and Folate Today Z00.00 - Encounter for general adult medical examination without abnormal findings Lipid Panel Today Z00.00 - Encounter for general adult medical examination without abnormal findings Free T4 (Free Thyroxine) Today Z00.00 - Encounter for general adult medical examination without abnormal findings Vitamin D 25-OH (D2 and D3) Today Z00.00 - Encounter for general adult medical examination without abnormal findings TSH reflex Free T4 Today Z00.00 - Encounter for general adult medical examination without abnormal findings 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
== END 2024-03-06 11:54 | disposition home or self-care (01) ==
DX: Z00.00 Encounter for general adult medical examination without abnormal findings (principal); E66.01 Morbid (severe) obesity due to excess calories; Z68.42 Body mass index [BMI] 45.0-49.9, adult; F32.A Depression, unspecified; G47.33 Obstructive sleep apnea (adult) (pediatric); I10 Essential (primary) hypertension

== ENCOUNTER → 2024-03-06 11:27 | Outpatient (BNVA) | payer BC, SELFPAY | DX: F32.A Depression, unspecified (principal); G47.33 Obstructive sleep apnea (adult) (pediatric); I10 Essential (primary) hypertension; E66.01 Morbid (severe) obesity due to excess calories; Z68.42 Body mass index [BMI] 45.0-49.9, adult | CPT/HCPCS: 96127 ==

== ENCOUNTER → 2024-03-11 11:18 | Outpatient (BNVA) | payer OTHER, SELFPAY | PROVIDERS: Visit Provider Physician Assistant Medical | DX: S01.01XA Laceration without foreign body of scalp, initial encounter (principal); W22.09XA Striking against other stationary object, initial encounter | CPT/HCPCS: 12001; 99203 ==

== ENCOUNTER → 2024-03-13 08:22 | Outpatient (BNVA) | payer OTHER, SELFPAY | PROVIDERS: Visit Provider Internal Medicine | DX: S01.01XA Laceration without foreign body of scalp, initial encounter (principal); W22.09XA Striking against other stationary object, initial encounter; Z48.02 Encounter for removal of sutures | CPT/HCPCS: 99213 ==

== ENCOUNTER → 2024-03-19 14:49 | Outpatient (BNVA) | payer OTHER, SELFPAY | PROVIDERS: Visit Provider Registered Nurse | DX: S01.01XA Laceration without foreign body of scalp, initial encounter (principal); W22.09XA Striking against other stationary object, initial encounter | CPT/HCPCS: 99213 ==

== ENCOUNTER 2024-04-02 14:00 | Outpatient (AMB) | payer OTHER, SELFPAY ==
[2024-04-02 14:05] VITALS: BMI 46.5
--- NOTE | 2024-04-02 14:05 | A.OFFVIS_ITS ---
VS Expanded 04/02/24 14:05 04/02/24 14:38 Height 5 ft 8 in 5 ft 8 in Weight 305 lb 12.498 oz 306 lb BMI 46.5 46.5 Intake Visit Reasons: Obesity/CONFIRMED Allergies No Known Allergies Allergy (Verified 03/06/24 11:38) Nutrition Presentation Details: Pt presents for MNT for obesity Pt reports working on reduction, incorporating meal replacements Typcal meal 10 am protein shakes ( premier) water 2 pm : 1/2 protein or 3 scrambled eggs/michaels and cheese 5 pm : salmon burger 3 , mixed vegetables , lettuce water: 64 oz /day reached 200 lbs 8 years ago ( keto diet/exercise) physical activity daily life etoh/smoking--- BS Monitoring Most Recent Diabetes Results: No Data to Display [id number].Jeor Equation Height: 5 ft 8 in Weight: 306 lb Resting Metabolic Rate: 2318.58 Calculated Activity Level: Mild Activity Calories Needed to Maintain Weight: 3188.05 Diagnosis Nutrition problem #1: excessive energy intake As related to (etiology) #1: diagnosis As evidenced by (sign/symptom) #1: knowledge deficit of diet [facility] Medical History Morbid obesity Mood disorder Seborrheic dermatitis Essential hypertension CHIDI (obstructive sleep apnea) Surgical History History of endoscopy Hx of appendectomy Family History Father Diabetes Mother HTN (hypertension) Acute arthritis Sleep apnea Son Autism Daughter No problems noted. Social History Household Members: Significant Other Housing: Apartment Alcohol intake: current Alcohol intake frequency: holidays/special occasions only Patient Tobacco Use Status: Never used Tobacco Substance Use Type: Marijuana service: No Current occupational status: employed Current occupation: [employer] Cognitive needs: No Hearing needs: No Vision needs: No Assessment & Plan Assessment & Plan (1) Morbid obesity: Code(s): E66.01 - Morbid (severe) obesity due to excess calories Category: Medical Plan: Wt: 137 Kg ( 10/24 ) Est kcal needs as per MSJ: 3200 (40% carb, 30% protein/fat) Est fluid needs as per 25-30 ml/d: 4100 Est prot per day as per 1 g/kg bw: 137 Recommend fiber intake : 8-10 g per day and gradually increase to 25-28 g per day for women and 35-38 g for men or as tolerated Recommend sodium intake per day : less than 2300 mg Educated patient on: ( R = reviewed V = verbalizes understanding N/R = needs review N/A = not applicable * Food sources of carbohydrate, adequate serving sizes and its role in various health conditions: R * Differences between complex carbohydrates a simple carbohydrates, role of fiber in diet: R * Lean protein sources of foods: R V * Differences between types of fats and role in diet (mono on saturated fat fatty acids, saturated fatty acids, trans fats): R V N/R * Food sources of sodium in salt and healthy modifications for heart health in kidney health: R V R/V * Vitamins and minerals: R V N/R * Healthy plate method concept: R V N/R * Physical activity: Benefits a precaution: R * Patient Instructions: Choose lean protein sources of foods and include high fiber sources of foods REduce total carb per meal to less than 120 g carb following healthy plate method, 3 meals/day - i Coding Level of Care Code Nutr Indiv Intake (34058) Diagnoses Morbid obesity E66.01 Time Spent (min) 30
[2024-04-08 20:46] VITALS: BMI 46.5
== END 2024-04-02 14:43 | disposition home or self-care (01) ==
LOC: HO.ENCR 14:00
PROVIDERS: Visit Provider Dietitian, Registered
DX: E66.01 Morbid (severe) obesity due to excess calories (principal)

== ENCOUNTER → 2024-04-02 14:00 | Outpatient (BNVA) | payer OTHER, SELFPAY | PROVIDERS: Visit Provider Dietitian, Registered | DX: E66.01 Morbid (severe) obesity due to excess calories (principal); Z68.42 Body mass index [BMI] 45.0-49.9, adult; Z71.3 Dietary counseling and surveillance | CPT/HCPCS: 97802 ==

== ENCOUNTER → 2024-12-04 08:09 | Outpatient (BNVA) | payer OTHER, SELFPAY | PROVIDERS: Visit Provider Internal Medicine | DX: S93.492A Sprain of other ligament of left ankle, initial encounter (principal); W18.49XA Other slipping, tripping and stumbling without falling, initial encounter | CPT/HCPCS: 73610; 99202 ==

== ENCOUNTER → 2024-12-13 08:35 | Outpatient (BNVA) | payer OTHER, SELFPAY | PROVIDERS: Visit Provider Internal Medicine | DX: S93.402A Sprain of unspecified ligament of left ankle, initial encounter (principal); W18.49XA Other slipping, tripping and stumbling without falling, initial encounter | CPT/HCPCS: 99213 ==

== ENCOUNTER → 2025-01-27 07:53 | Outpatient (BNVA) | payer OTHER, SELFPAY | PROVIDERS: Visit Provider Internal Medicine | DX: L23.7 Allergic contact dermatitis due to plants, except food (principal); Z02.79 Encounter for issue of other medical certificate | CPT/HCPCS: 99202 ==

== ENCOUNTER → 2025-03-12 10:01 | Outpatient (BNVA) | payer OTHER, SELFPAY | PROVIDERS: Visit Provider Physician Assistant | DX: S93.402A Sprain of unspecified ligament of left ankle, initial encounter (principal); X50.1XXA Overexertion from prolonged static or awkward postures, initial encounter | CPT/HCPCS: 73610; 99204 ==

== ENCOUNTER → 2025-03-21 09:25 | Outpatient (BNVA) | payer OTHER, SELFPAY | PROVIDERS: Visit Provider Physician Assistant | DX: S93.402D Sprain of unspecified ligament of left ankle, subsequent encounter (principal); X50.1XXD Overexertion from prolonged static or awkward postures, subsequent encounter | CPT/HCPCS: 99214 ==

== ENCOUNTER → 2025-04-04 09:13 | Outpatient (BNVA) | payer OTHER, SELFPAY | PROVIDERS: Visit Provider Physician Assistant | DX: S93.402D Sprain of unspecified ligament of left ankle, subsequent encounter (principal); X50.1XXD Overexertion from prolonged static or awkward postures, subsequent encounter; Z02.79 Encounter for issue of other medical certificate | CPT/HCPCS: 99213 ==